=== PATIENT | female | born 1960 | race Caucasian/White ===

== ENCOUNTER 2023-04-23 10:27 | Day surgery (SDC) | payer OTHER ==
[2023-04-22 13:44] LABS: Absolute Lymphocytes (CBC) 1.6 K/uL (0.7-4.9); Lymphocytes % 38.1 % (15.3-44.8); MCV 91.8 fL (80-100); MPV 8.7 fL (7.6-11.3); RBC Red Blood Cell Count 4.03 M/uL (3.86-4.86)
--- NOTE | 2023-04-22 14:35 | EKG ---
Test Date: 2023-04-22 Test Time: 12:50:27 Sharepoint Manager: JEMIMA MEASUREMENT RESULTS: Intervals: Rate: 47 WV: 130 QRSD: 76 QT: 460 QTc: 407 [place]: P: -13 WV: 130 QRS: -16 T: -14 INTERPRETIVE STATEMENTS: Marked sinus bradycardia Inferior infarct, age undetermined Abnormal ECG Compared to ECG 03/22/2015 12:15:52 Myocardial infarct finding now present Sinus rhythm no longer present Electronically Signed On 04-22-23 14:35:32 CDT by Gaudencio Coffey
[2023-04-23] MEDS ORDERED: CEFAZOLIN SODIUM 1 GM/VIAL ONE (11:09)
[2023-04-23] MEDS ORDERED: Ringers Lactate 1,000 ML IV ONE (11:09)
[2023-04-23] MEDS ORDERED: ONDANSETRON 4 MG/2 ML VIAL ONE (11:52)
[2023-04-23] MEDS ORDERED: propofoL 200 MG/20 ML VIAL IV ONE ×2 (12:01→12:58)
[2023-04-23] MEDS ORDERED: LIDOCAINE 1% MPF 5 ML VIAL ONE (12:01)
[2023-04-23 14:15] VITALS: BP 135/66; TEMP 97.1; O2SAT 97
== END 2023-04-23 13:48 | disposition home or self-care (01) ==
LOC: OR 10:27
PROVIDERS: ATTEND Surgery
PROC: 0DB68ZX Excision of Stomach, Via Natural or Artificial Opening Endoscopic, Diagnostic (ICD-10-PCS; principal; 2023-04-23 12:30)
DX: R10.13 Epigastric pain (principal); K29.50 Unspecified chronic gastritis without bleeding; R14.0 Abdominal distension (gaseous); T85.598D Other mechanical complication of other gastrointestinal prosthetic devices, implants and grafts, subsequent encounter
CPT/HCPCS: 93005; 85025; 80048; 36415; 88312; 88305; 43239; J2704 ×2; J2001; J2405; J7120; J0690; C1769

== ENCOUNTER 2023-04-29 16:29 | Emergency (ER) | payer OTHER ==
[2023-04-29] MEDS ORDERED: PANTOPRAZOLE 40 MG INJ ONE (17:55)
[2023-04-29] MEDS ORDERED: ONDANSETRON 4 MG/2 ML VIAL ONE (17:55)
[2023-04-29 18:09] LABS: Absolute Lymphocytes (CBC) 1.9 K/uL (0.7-4.9); Hematocrit 35.4 % (36.0-45.0); Lymphocytes % 27.7 % (15.3-44.8); MCV 90.9 fL (80-100); MPV 8.7 fL (7.6-11.3)
[2023-04-29] MEDS ORDERED: NA CHLORIDE 0.9% 500 ML ONE (18:26)
[2023-04-29 18:31] LABS: Albumin 3.5 g/dL (3.4-5.0); Bilirubin Total 0.4 mg/dL (0.2-1.0); Protein, Total 7.6 g/dL (6.4-8.2)
--- NOTE | 2023-04-29 19:03 | RAD REPORT ---
EXAM DESCRIPTION: Martine Single View04/29/2023 6:52 pm CLINICAL HISTORY: abdominal pain COMPARISON: CHEST PA AND LAT 2 VIEW dated 02/28/2015; ABDOMEN 1 VIEW KUB dated 02/24/2015; ABDOMEN 1 VIE W KUB dated 01/23/2015; CHEST PA AND LAT 2 VIEW dated 10/27/2013 TECHNIQUE: Portable AP view of the chest. FINDINGS: The lungs are clear. Hyperlucency and hyperinflation suggestive of COPD. No pneumothorax or effusion. The cardiomediastinal contours are unremarkable. IMPRESSION: No acute cardiopulmonary process.
--- NOTE | 2023-04-29 19:15 | RAD REPORT ---
EXAM DESCRIPTION: CT - Abdomen Pelvis W Contrast - 04/29/2023 6:43 pm CLINICAL HISTORY: ABD PAIN COMPARISON: Abdomen Pelvis W Contrast dated 04/16/2023; CT ABD PELVIS W CONTRAST dated 01/30/2015; C T ABD PELVIS W CONTRAST dated 11/08/2013 TECHNIQUE: Thin cut axial CT imaging of the abdomen and pelvis was performed following intravenous a dministration of 100 mL Isovue 300. Multiplanar reformats were generated and reviewed. All CT scans are performed using dose optimization technique as appropriate and may include automated exposure control or mA/KV adjustment according to patient size. FINDINGS: No suspicious findings in the lung bases. The liver, spleen, and pancreas show no suspicious findings. Sub centimeter right liver lobe fluid de nsity lesion is stable, not well characterized given single phase of contrast and small size. Gallbla dder was surgically removed. No evidence of intra or extrahepatic biliary ductal dilation Symmetric renal function is seen with no hydronephrosis or suspicious renal mass. No dilated bowel loops or bowel wall thickening. Percutaneous gastrojejunostomy tube in satisfactory position. No free air, free fluid or inflammatory stranding. No hernia, mass or bulky lymphadenopathy . The urinary bladder is suboptimally distended limiting evaluation. No suspicious bony findings. IMPRESSION: No acute intra-abdominal process. No abnormalities with attention to the percutaneous gastrojejunostomy tube.
[2023-04-29] MEDS ORDERED: DICYCLOMINE HCL 20 MG/2 ML AMP IM ONE (19:57)
[2023-04-29 20:24] LABS: Specific Gravity 1.017 (1.005-1.030); Urine Bacteria None Seen /HPF (<20); Urine Bilirubin NEGATIVE (Negative); Urine Blood Trace (Negative); Urine Clarity Turbid (Clear); Urine Color Yellow (Yellow); Urine Glucose NEGATIVE (Negative); Urine Mucus 1+ /HPF (None Seen); Urine Protein TRACE (Negative); Urine Urobilinogen Normal (Normal)
--- NOTE | 2023-04-29 20:53 | RAD REPORT ---
EXAM DESCRIPTION: RAD - ENTEROSTOMY TUBE CHECK W/CONTR - 04/29/2023 8:35 pm CLINICAL HISTORY: leaking COMPARISON: Abdomen Pelvis W Contrast dated 04/29/2023 TECHNIQUE: Single AP views of the abdomen. FINDINGS: Retained contrast in the renal pelves limits evaluation Satisfactory positioning of the jejunostomy tube. Contrast injected the gastrojejunostomy acute along the lumen of the second part of duodenum to the jejunum, without evidence of extraluminal contrast. Nonobstructive bowel gas pattern. No air-fluid levels, free air, or pneumatosis. No suspicious calcif ications. No significant bony abnormality. IMPRESSION: Satisfactory positioning of the gastrojejunostomy tube, without evidence of extraluminal contrast.
--- NOTE | 2023-04-29 22:05 | EDPHYS ---
Physician Documentation [facility] Name: Tamara Sotelo Age: 62 yrs Sex: Female : 1960 Arrival Date: 04/29/2023 Time: 16:29 Bed 10 Private MD: ED Physician Sage Morrissey HPI: 04/29 17:05 This 62 yrs old Female presents to ER via Ambulatory with complaints of Post Surgical cp Pain, Abdominal Pain. 17:05 The patient presents with abdominal pain mid abdomen. cp 17:05 Onset: The symptoms/episode began/occurred since replacement of gastrojejunostomy tube cp by DR Diop months ago. Associated signs and symptoms: Pertinent positives: anorexia, Pertinent negatives: chest pain, constipation, nausea, active vomiting. Severity of pain: in the emergency department the pain is unchanged despite home interventions. Historical: - Allergies: 16:40 Codeine; hb 16:40 Demerol; hb 16:40 Dilaudid; hb 16:40 Morphine; hb 16:40 [place]; hb 16:40 Opiods; hb 16:40 Oxycodone; hb - PMHx: 16:40 Gastroparesis; Lupus erythematosus; FAP; hb - PSHx: 16:40 feeding tube; hysterectomy; ileostomy; hb - Immunization history:: Adult Immunizations up to date. - Social history:: Smoking status: Patient reports the use of cigarette tobacco products, smokes one-half pack cigarettes per day. ROS: 17:10 Constitutional: Negative for body aches, chills, fever, poor PO intake. cp 17:10 Respiratory: Negative for cough, shortness of breath, wheezing. cp 17:10 Abdomen/GI: Positive for abdominal pain. 17:10 Cardiovascular: Negative for chest pain, edema, palpitations. cp 17:10 Eyes: Negative for injury, pain, redness, and discharge. cp 17:10 Neuro: Negative for altered mental status, dizziness, headache, weakness. 17:10 All other systems are negative. Exam: 17:15 Constitutional: The patient appears in no acute distress, alert, awake, non-toxic, well cp developed, anorexic appearing 17:15 Head/Face: Normocephalic, atraumatic. cp 17:15 Eyes: Periorbital structures: appear normal, Conjunctiva: normal, no exudate, no injection, Sclera: no appreciated abnormality, Lids and lashes: appear normal, bilaterally. 17:15 ENT: External ear(s): are unremarkable, Nose: is normal, Mouth: Lips: moist, Oral mucosa: pink and intact, moist, Posterior pharynx: is normal, airway is patent, no erythema, no exudate. 17:15 Chest/axilla: Inspection: normal, Palpation: is normal, no crepitus, no tenderness. 17:15 Cardiovascular: Rate: normal, Rhythm: regular. 17:15 Respiratory: the patient does not display signs of respiratory distress, Respirations: normal, no use of accessory muscles, no retractions, labored breathing, is not present, Breath sounds: are clear throughout, no decreased breath sounds, no stridor, no wheezing. 17:15 Abdomen/GI: Inspection: gastrojejunostomy tube in place left mid abdomen with no drainage, minimal erythema around site, Bowel sounds: active, all quadrants, Palpation: soft, in all quadrants, moderate abdominal tenderness, in the left upper quadrant and left lower quadrant, rebound tenderness, is not appreciated, involuntary guarding, is not appreciated. 17:15 Skin: cellulitis, is not appreciated, no rash present. 17:15 Neuro: Orientation: to person, place \T\ time. Mentation: is normal, Motor: moves all fours, strength is normal, Sensation: is normal. Vital Signs: 16:38 BP 91 / 75; Pulse 93; Resp 16; Temp 98.6(O); Weight 37.19 kg; Height 5 ft. 4 in. ; Pain hb 10/10; 19:00 BP 121 / 80; Pulse 90; Resp 16; eh3 20:00 BP 127 / 81; Pulse 91; Resp 16; eh3 21:00 BP 111 / 75; Pulse 85; Resp 16; eh3 16:38 Body Mass Index 14.08 (37.19 kg, 162.56 cm) hb 16:38 Pain Scale: Adult hb MDM: 16:46 Patient medically screened. cp 18:00 Differential diagnosis: bowel obstruction, non-specific abd pain, Peritonitis, cp Pyelonephritis, Ureterolithiasis, urinary tract infection, sepsis, obstructed feeding tube. 21:16 Data reviewed: vital signs, nurses notes, lab test result(s), radiologic studies, CT cp scan, plain films. ED course: spoke with DR Yusuf to discuss today's results and he will f/u with patient in clinic next week. 04/29 16:57 Order name: CBC with Diff; Complete Time: 19:21 04/29 19:21 Interpretation: Normal except: HCT 35.4. 04/29 16:57 Order name: CMP; Complete Time: 19:21 04/29 19:21 Interpretation: Normal except: AST 13; GLOB 4.1; A/G 0.9. 04/29 16:57 Order name: Lipase; Complete Time: 19:21 04/29 16:57 Order name: Urinalysis w/ reflexes; Complete Time: 20:30 04/29 21:13 Interpretation: Normal except: [facility] Turbid; UBLD Trace; UPROT TRACE; URBC 5-10. 04/29 16:57 Order name: Lactate w/ 2H reflex if indic.; Complete Time: 19:21 04/29 19:22 Interpretation: Reviewed. 04/29 16:57 Order name: CT Abd/Pelvis - IV Contrast Only; Complete Time: 19:21 04/29 19:21 Interpretation: Report reviewed. 04/29 18:02 Order name: XRAY Chest (1 view); Complete Time: 19:21 04/29 19:32 Order name: PEG Tube Check w/contrast: place contrast in gastrostomy tube and not cp jejunostomy; Complete Time: 21:12 04/29 16:57 Order name: IV Saline Lock; Complete Time: 17:59 04/29 16:57 Order name: Labs collected and sent; Complete Time: 17:59 cp Administered Medications: 17:59 Drug: Ondansetron IVP 4 mg Route: IVP; Site: right antecubital; kc6 20:09 Follow up: Response: No adverse reaction eh3 17:59 Drug: Pantoprazole IVP 40 mg Route: IVP; Site: right antecubital; kc6 20:09 Follow up: Response: No adverse reaction eh3 18:29 Drug: NS 0.9% IV 500 ml Route: IV; Rate: bolus; Site: right antecubital; kc6 20:09 Follow up: IV Status: Completed infusion; IV Intake: 500ml eh3 20:00 Drug: Dicyclomine IM 20 mg Route: IM; Site: right deltoid; [facility] 21:00 Follow up: Response: No adverse reaction [facility] 22:08 Drug: Ketorolac IVP 15 mg Route: IVP; Site: right antecubital; 3 22:09 Follow up: Response: Medication administered at discharge. [facility] Disposition: 04/30 09:04 Co-signature as Attending Physician, Sage Morrissey DO Jojo was immediately available on-site ms3 in the Emergency Department for consultation in the care of the patient. Disposition Summary: 04/29/23 22:04 Discharge Ordered Location: Home cp Problem: an ongoing problem cp Symptoms: have improved cp Condition: Stable cp Diagnosis - Abdominal pain, unspecified cp - Encounter for attention to gastrostomy cp Followup: cp - With: Rolf Yusuf MD - When: 5 - 6 days - Reason: Recheck today's complaints Discharge Instructions: - Discharge Summary Sheet cp - Abdominal Pain, Adult cp - Gastrostomy Tube Home Guide, Adult cp Forms: - Medication Reconciliation Form cp - Thank You Letter cp - Antibiotic Education cp - Prescription Opioid Use cp Prescriptions: - Zofran 4 mg Oral Tablet - take 1 tablet by ORAL route every 12 hours As needed; 20 tablet; Refills: 0, cp Product Selection Permitted - dicyclomine 20 mg Oral Tablet - take 1 tablet by ORAL route 4 times per day; 30 tablet; Refills: 0, Product cp Selection Permitted Signatures: Dispatcher [employer] EDTyrone Tarango PA PA cp Baxter, Heather, RN RN hb Sims, Marcus, DO DO ms3 Dawna Pink RN RN 3 Debra Valdes RN RN kc6
--- NOTE | 2023-04-29 22:05 | ER ---
Nurse's Notes [facility] Name: Tamara Sotelo Age: 62 yrs Sex: Female : 1960 Arrival Date: 04/29/2023 Time: 16:29 Bed 10 Private MD: Diagnosis: Abdominal pain, unspecified;Encounter for attention to gastrostomy Presentation: 04/29 16:38 Chief complaint: Had J tube repositioned last week by Dr. Yusuf, reports worsening hb abdominal pain and fever x 2 days. TMAX 100.7. Coronavirus screen: At this time, the client does not indicate any symptoms associated with coronavirus-19. Ebola Screen: No symptoms or risks identified at this time. Initial Sepsis Screen: Does the patient meet any 2 criteria? No. Patient's initial sepsis screen is negative. Does the patient have a suspected source of infection? No. Patient's initial sepsis screen is negative. Risk Assessment: Do you want to hurt yourself or someone else? Patient reports no desire to harm self or others. Onset of symptoms was April 25, 2023. 16:38 Method Of Arrival: Ambulatory hb 16:38 Acuity: VAL 3 hb Historical: - Allergies: 16:40 Codeine; hb 16:40 Demerol; hb 16:40 Dilaudid; hb 16:40 Morphine; hb 16:40 [place]; hb 16:40 Opiods; hb 16:40 Oxycodone; hb - PMHx: 16:40 Gastroparesis; Lupus erythematosus; FAP; hb - PSHx: 16:40 feeding tube; hysterectomy; ileostomy; hb - Immunization history:: Adult Immunizations up to date. - Social history:: Smoking status: Patient reports the use of cigarette tobacco products, smokes one-half pack cigarettes per day. Screenin:02 [facility] ED Fall Risk Assessment (Adult) History of falling in the last 3 months, kc6 including since admission No falls in past 3 months (0 pts) Confusion or Disorientation No (0 pts) Intoxicated or Sedated No (0 pts) Impaired Gait No (0 pts) Mobility Assist Device Used No (0 pt) Altered Elimination No (0 pt) Score/Fall Risk Level 0 - 2 = Low Risk Oriented to surroundings, Maintained a safe environment, Educated pt \T\ family on fall prevention, incl call for assistance when getting out of bed, Assessed \T\ reinforced patient's understanding of fall precautions, Hourly rounding (assess needs \T\ fall precautionary measures) done. Abuse screen: Denies threats or abuse. Denies injuries from another. Nutritional screening: No deficits noted. Tuberculosis screening: No symptoms or risk factors identified. Assessment: 18:01 General: Appears in no apparent distress. uncomfortable, Behavior is calm, cooperative, kc6 appropriate for age. Pain: Complains of pain in abdomen. Neuro: Level of Consciousness is awake, alert, obeys commands, Oriented to person, place, time, situation, Appropriate for age. Cardiovascular: Capillary refill < 3 seconds. Respiratory: Airway is patent Trachea midline Respiratory effort is even, unlabored, Respiratory pattern is regular, symmetrical. GI: Abdomen is flat, non-distended, Bowel sounds present X 4 quads. Abd is soft X 4 quads. : No signs and/or symptoms were reported regarding the genitourinary system. EENT: No signs and/or symptoms were reported regarding the EENT system. Derm: No signs and/or symptoms reported regarding the dermatologic system. Skin is intact, Skin is pink, warm \T\ dry. Musculoskeletal: No signs and/or symptoms reported regarding the musculoskeletal system. Circulation, motion, and sensation intact. Capillary refill < 3 seconds, Range of motion: intact in all extremities. 18:58 Reassessment: Patient appears in no apparent distress at this time. No changes from kc6 previously documented assessment. Patient and/or family updated on plan of care and expected duration. Pain level reassessed. Patient is alert, oriented x 3, equal unlabored respirations, skin warm/dry/pink. 20:00 Reassessment: Patient appears in no apparent distress at this time. Patient and/or eh3 family updated on plan of care and expected duration. Pain level reassessed. Patient is alert, oriented x 3, equal unlabored respirations, skin warm/dry/pink. 21:00 Reassessment: Patient appears in no apparent distress at this time. Patient and/or eh3 family updated on plan of care and expected duration. Pain level reassessed. Patient is alert, oriented x 3, equal unlabored respirations, skin warm/dry/pink. Vital Signs: 16:38 BP 91 / 75; Pulse 93; Resp 16; Temp 98.6(O); Weight 37.19 kg; Height 5 ft. 4 in. ; Pain hb 10/10; 19:00 BP 121 / 80; Pulse 90; Resp 16; eh3 20:00 BP 127 / 81; Pulse 91; Resp 16; eh3 21:00 BP 111 / 75; Pulse 85; Resp 16; eh3 16:38 Body Mass Index 14.08 (37.19 kg, 162.56 cm) hb 16:38 Pain Scale: Adult hb ED Course: 16:30 Patient arrived in ED. ts1 16:39 Tyrone Frausto PA is PHCP. cp 16:39 Sage Morrissey DO is Attending Physician. cp 16:40 Triage completed. hb 16:40 Arm band placed on. hb 17:01 Radiology exam delayed due to lab results not completed at this time. (BUN/Creatinine) [id number] IV insertion attempt and/or patient not having appropriate IV at this time. 17:46 Debra Valdes RN is Primary Nurse. kc6 17:59 Inserted saline lock: 20 gauge in right antecubital area, using aseptic technique. kc6 Blood collected. 18:02 Patient has correct armband on for positive identification. Bed in low position. Call kc6 light in reach. Side rails up X 1. Adult w/ patient. 18:45 CT Abd/Pelvis - IV Contrast Only In Process Unspecified. EDMS 18:53 XRAY Chest (1 view) In Process Unspecified. EDMS 19:00 Report received from DORA Richardson. eh3 20:36 PEG Tube Check w/contrast: place contrast in gastrostomy tube and not jejunostomy In EDMS Process Unspecified. 22:02 Rolf Yusuf MD is Referral Physician. cp 22:09 No provider procedures requiring assistance completed. IV discontinued, intact, eh3 bleeding controlled, No redness/swelling at site. Pressure dressing applied. Administered Medications: 17:59 Drug: Ondansetron IVP 4 mg Route: IVP; Site: right antecubital; kc6 20:09 Follow up: Response: No adverse reaction eh3 17:59 Drug: Pantoprazole IVP 40 mg Route: IVP; Site: right antecubital; kc6 20:09 Follow up: Response: No adverse reaction eh3 18:29 Drug: NS 0.9% IV 500 ml Route: IV; Rate: bolus; Site: right antecubital; kc6 20:09 Follow up: IV Status: Completed infusion; IV Intake: 500ml eh3 20:00 Drug: Dicyclomine IM 20 mg Route: IM; Site: right deltoid; eh3 21:00 Follow up: Response: No adverse reaction eh3 22:08 Drug: Ketorolac IVP 15 mg Route: IVP; Site: right antecubital; eh3 22:09 Follow up: Response: Medication administered at discharge. 3 Medication: 22:09 VIS not applicable for this client. eh3 Intake: 20:09 IV: 500ml; Total: 500ml. 3 Outcome: 22:04 Discharge ordered by MD. cp 22:09 Discharged to home via wheelchair, with family. 3 22:09 Condition: stable 22:09 Discharge instructions given to patient, Instructed on discharge instructions, follow up and referral plans. Demonstrated understanding of instructions, follow-up care, medications, Prescriptions given X 2. 22:13 Patient left the ED. 3 Signatures: Dispatcher [employer] EDMS Tyrone Frausto PA PA cp Baxter, Heather, RN RN Dawna Pink RN RN 3 Debra Valdes RN RN 6 Marzena AlexanderChristine Cantor PAS PAS 1
[2023-04-29] MEDS ORDERED: KETOROLAC 30 MG/ML INJ ONE (22:10)
[2023-04-29 22:39] VITALS: TEMP 98.6
[2023-04-29 22:51] VITALS: BP 111/75
== END 2023-04-29 22:13 | disposition home or self-care (01) ==
LOC: ER 16:29
DX: R10.9 Unspecified abdominal pain (principal); Z43.1 Encounter for attention to gastrostomy; R50.9 Fever, unspecified; Z88.5 Allergy status to narcotic agent; Z88.8 Allergy status to other drugs, medicaments and biological substances; K31.84 Gastroparesis; L93.0 Discoid lupus erythematosus
CPT/HCPCS: 96361; 85025; 81001; 36415; 83605; 83690; 80053; 74177; 71045; 49465; 96375; 96372; 96374; 99284; Q9967; J0500; C9113; J2405; J7040

== ENCOUNTER 2023-05-04 13:02 | Inpatient (IN) | payer OTHER ==
[2023-05-04] MEDS ORDERED: MORPHINE 2 MG/ML SYR IV PRN (17:08)
[2023-05-04] MEDS ORDERED: ONDANSETRON 4 MG/2 ML VIAL IV PRN (17:08)
[2023-05-04] MEDS ORDERED: TWOCAL HN 1,000 ML BOT RTH SCH (18:00)
[2023-05-04] MEDS ORDERED: NA CHLORIDE 0.9% 1,000 ML IV SCH (18:00)
[2023-05-04 18:22] LABS: Absolute Lymphocytes (CBC) 1.8 K/uL (0.7-4.9); Hematocrit 34.6 % (36.0-45.0); Lymphocytes % 34.2 % (15.3-44.8); MCV 90.6 fL (80-100); MPV 8.5 fL (7.6-11.3); RBC Red Blood Cell Count 3.82 M/uL (3.86-4.86)
[2023-05-04 18:28] LABS: Protime INR 1.11
[2023-05-04 18:38] LABS: Albumin 3.2 g/dL (3.4-5.0); Bilirubin Total 0.2 mg/dL (0.2-1.0); Potassium 3.7 mEq/L (3.5-5.1); Protein, Total 7.1 g/dL (6.4-8.2)
[2023-05-04] MEDS: NA CHLORIDE 0.9% 1,000 ML IV SCH (18:42)
[2023-05-04] MEDS: LIPIDS 20% IV SCH ×3 (18:51)
[2023-05-04] MEDS: AMINO ACIDS IV SCH ×3 (18:51)
[2023-05-04] MEDS: DEXTROSE 5% IV SCH ×3 (18:51)
[2023-05-04] MEDS: MULTIVITAMINS IV SCH ×3 (18:51)
[2023-05-04] MEDS: Mupirocin NASAL 2 APPL/1 GM TUBE NAS SCH (19:49)
--- NOTE | 2023-05-05 05:00 | P.HP ---
Certification for Inpatient Patient admitted to: Inpatient With expected LOS: >2 Midnights Patient will require the following post-hospital care: None Practitioner: I am a practitioner with admitting privileges, knowledge of patient current condition, hospital course, and medical plan of care. Services: Services provided to patient in accordance with Admission requirements found in Title 42 Section 412.3 of the Code of Federal Regulations Patient History Date of Service: 05/04/23 History of Present Illness: Patient is a 62-year-old female who I was asked to admit to the hospital for severe malnutrition. Patient has apparently been having difficulty with her feeding tube and has lost quite a bit of weight. However, her feeding tube is appropriately placed. She has a history of systemic lupus erythematous and familial adenomatous polyposis. Patient also has a history of gastroparesis and that was the main reason she had the feeding tube placed. She has been having intractable nausea and vomiting as well as severe anorexia. Patient had a recent CT scan of the abdomen and pelvis which was unremarkable. Patient's albumin level is stable as well. Patient will be admitted to the hospital for further evaluation. Allergies codeine Allergy (Verified 04/23/23 11:36) rash, nausea, vomiting hydromorphone [From Dilaudid] Allergy (Verified 04/23/23 11:36) Rash, nausea, vomiting meperidine HCl [From Demerol] Allergy (Verified 04/23/23 11:36) Nausea/Vomiting morphine Allergy (Verified 04/23/23 11:36) quits breathing tramadol Allergy (Verified 04/23/23 11:36) hallucinations Hydrocodone-Acetaminophen Allergy (Uncoded 04/23/23 11:36) rash, nausea, vomiting Home Medications: Dicyclomine [Bentyl*] 20 mg PO QID 05/04/23 Ondansetron [Zofran (Odt)*] 4 mg PO Q12H PRN 05/04/23 - Past Medical/Surgical History Has patient received pneumonia vaccine in the past: No Diabetic: No -: Lupus -: FAP -: Gastroparesis -: Peripheral neuropathy -: Osteopenia/osteoporosis -: Fibromyalgia -: kidney stones -: cysts on liver and kidneys -: partial complex seizure disorder -: Ovarian cysts removal -: Hysterectomy -: appendectomy -: bowel resection -: J pouch in 1999, failed in 2019 -: Ileostomy -: Feeding tube -: Metal plate in right hand and neck - Family History Father Medical History: Heart disease Brother Medical History: Heart disease Mother Medical History: Cancer Notes: LUNG AND BLADDER CANCER - Social History Smoking Status: Current every day smoker Alcohol use: No CD- Drugs: No Caffeine use: No Place of Residence: Home Review of Systems 10-point ROS is otherwise unremarkable Physical Examination - Vital Signs Temperature: 97.2 F Blood Pressure: 97/58 Pulse: 58 Respirations: 17 Pulse Ox (%): 96 - Physical Exam General: Alert, In no apparent distress, Oriented x3, Cachectic, Other (emaciated) HEENT: Atraumatic, PERRLA, Mucous membr. moist/pink, EOMI, Sclerae nonicteric Neck: Supple, 2+ carotid pulse no bruit, No LAD, Without JVD or thyroid abnormality Respiratory: Clear to auscultation bilaterally, Normal air movement Cardiovascular: Regular rate/rhythm, Normal S1 S2, No murmurs Gastrointestinal: Normal bowel sounds, Soft and benign, Non-distended, No tenderness, Guarding (scaphoid abdomen) Musculoskeletal: No clubbing, No swelling, No tenderness Integumentary: No rashes Neurological: Sensation intact, Cranial nerves 3-12 intact, Normal affect, Abnormal strength Lymphatics: No axilla or inguinal lymphadenopathy - Studies Laboratory Data (last 24 hrs) 05/04/23 18:01: Sodium 137, Potassium 3.7, BUN 10, Creatinine 0.65, Glucose 118 H, Total Bilirubin 0.2, AST 10 L, ALT 12 L, Alkaline Phosphatase 78 05/04/23 18:01: PT 12.2, INR 1.11, APTT 34.9 05/04/23 18:01: WBC 5.40, Hgb 11.6 L, Hct 34.6 L, Plt Count 244 Assessment & Plan - Problems (Diagnosis) (1) SLE (systemic lupus erythematosus) Current Visit: Yes Status: Acute (2) FAP (familial adenomatous polyposis) Current Visit: Yes Status: Acute (3) Severe malnutrition Current Visit: Yes Status: Acute (4) Gastroparesis Current Visit: Yes Status: Acute - Plan Plan: 1. IV nutrition 2. Speech therapy consultation 3. Dietary consultation 4. Thyroid studies and will also check cortisol level and inflammatory markers. 5. Education re: use of G/J tube 6. GI DVT prophylaxis Discharge Plan: Home Plan to discharge in: Greater than 2 days - Advance Directives Does patient have a Living Will: No Does patient have a Durable POA for Healthcare: No - Code Status/Comfort Care Code Status Assessed: Yes Code Status: Full Code Critical Care: No Time Spent Managing PTS Care (In Minutes): 45
[2023-05-05 06:10] LABS: Absolute Lymphocytes (CBC) 1.6 K/uL (0.7-4.9); Hematocrit 35.1 % (36.0-45.0); Lymphocytes % 37.6 % (15.3-44.8); MCV 91.1 fL (80-100); MPV 8.5 fL (7.6-11.3); RBC Red Blood Cell Count 3.85 M/uL (3.86-4.86)
[2023-05-05 06:15] LABS: Protime INR 1.09
[2023-05-05 06:32] LABS: Bilirubin Total 0.3 mg/dL (0.2-1.0); Magnesium 2.4 mg/dL (1.6-2.4); Phosphorus 3.7 mg/dL (2.5-4.9); Potassium 4.1 mEq/L (3.5-5.1); Protein, Total 6.9 g/dL (6.4-8.2)
[2023-05-05] MEDS ORDERED: PNEUMOCOCCAL VACCINE 0.5 ML IMVAC ONE (08:00)
[2023-05-05] MEDS: Mupirocin NASAL 2 APPL/1 GM TUBE NAS SCH ×2 (08:13→21:10)
[2023-05-05] MEDS ORDERED: INSULIN -REGULAR HUMAN 100 UNIT in NA CHLORIDE 0.9% 100 ML IV SCH (16:00)
[2023-05-05] MEDS: AMINO ACIDS 4.25 %/DEXTROSE 5% 2,000 ML IV SCH (16:27)
[2023-05-05] MEDS ORDERED: JEVITY 1.5 CAL LIQUID 1,000 ML BOT RTH SCH ×2 (18:00)
[2023-05-06] MEDS: NA CHLORIDE 0.9% 1,000 ML IV SCH (06:42)
[2023-05-06 07:28] LABS: Hematocrit 40.2 % (36.0-45.0); MCV 91.4 fL (80-100); MPV 8.4 fL (7.6-11.3); RBC Red Blood Cell Count 4.39 M/uL (3.86-4.86)
[2023-05-06 07:46] LABS: Magnesium 2.1 mg/dL (1.6-2.4); Phosphorus 3.7 mg/dL (2.5-4.9)
[2023-05-06 08:09] LABS: C-Reactive Protein 25.3 mg/L (<3.00)
[2023-05-06 08:13] LABS: Thyroid Stimulating Hormone 3.96 uIU/mL (0.358-3.740)
[2023-05-06] MEDS: Mupirocin NASAL 2 APPL/1 GM TUBE NAS SCH ×2 (08:15→21:00)
--- NOTE | 2023-05-06 10:13 | P.PN ---
Date of Service: 05/05/23 Subjective Patient is doing well with no new complaints; education re: G/J tube Physical Examination - Vital Signs reviewed - Physical Exam General: Alert, In no apparent distress, Oriented x3, Cachectic, Other (emaciated) HEENT: Atraumatic, PERRLA, Mucous membr. moist/pink, EOMI, Sclerae nonicteric; temporal wasting Respiratory: Clear to auscultation bilaterally, Normal air movement Cardiovascular: Regular rate/rhythm, Normal S1 S2, No murmurs Gastrointestinal: Normal bowel sounds, Soft and benign, Non-distended, No tenderness, Guarding (scaphoid abdomen); Ileostomy; G/J tube Musculoskeletal: No clubbing, No swelling, No tenderness Neurological: Sensation intact, Cranial nerves 3-12 intact, Normal affect, Abnormal strength Assessment & Plan - Problems (Diagnosis) (1) SLE (systemic lupus erythematosus) Current Visit: Yes Status: Acute (2) FAP (familial adenomatous polyposis) Current Visit: Yes Status: Acute (3) Severe malnutrition Current Visit: Yes Status: Acute (4) Gastroparesis Current Visit: Yes Status: Acute - Plan Continue with POC as mentioned below: 1. IV nutrition 2. Speech therapy consultation appreciated 3. Dietary consultation appreciated 4. Thyroid studies and will also check cortisol level and inflammatory markers. 5. Education re: use of G/J tube 6. GI DVT prophylaxis Discharge Plan: Home Plan to discharge in: Greater than 2 days - Advance Directives Does patient have a Living Will: No Does patient have a Durable POA for Healthcare: No - Code Status/Comfort Care Code Status Assessed: Yes Code Status: Full Code Critical Care: No Time Spent Managing PTS Care (In Minutes): 45
[2023-05-06] MEDS: ACETAMINOPHEN 500 MG TAB PO PRN (14:13)
--- NOTE | 2023-05-06 16:19 | RAD REPORT ---
EXAM DESCRIPTION: RAD - Abdomen 1 View (KUB) - 05/06/2023 3:01 pm CLINICAL HISTORY: abd pain COMPARISON: ABDOMEN 1 VIEW KUB dated 02/24/2015; ABDOMEN 1 VIEW KUB dated 01/23/2015; ENTEROSTOMY TUBE C HECK W/CONTR dated 04/29/2023; Abdomen Pelvis W Contrast dated 04/29/2023 TECHNIQUE: Single AP view of the abdomen. FINDINGS: Nonobstructive bowel gas pattern. No air-fluid levels, free air, or pneumatosis. Stable po sition of the gastrojejunostomy tube. No suspicious calcifications. No significant bony abnormality. IMPRESSION: No abnormalities on abdominal radiographs.
[2023-05-07] MEDS: ACETAMINOPHEN 500 MG TAB PO PRN (00:36)
[2023-05-07] MEDS: AMINO ACIDS IV SCH ×3 (03:10)
[2023-05-07] MEDS: LIPIDS 20% IV SCH ×3 (03:10)
[2023-05-07] MEDS: DEXTROSE 5% IV SCH ×3 (03:10)
[2023-05-07] MEDS: MULTIVITAMINS IV SCH ×3 (03:10)
[2023-05-07 06:39] LABS: Absolute Lymphocytes (CBC) 1.7 K/uL (0.7-4.9); Hematocrit 36.1 % (36.0-45.0); Lymphocytes % 31.7 % (15.3-44.8); MCV 90.4 fL (80-100); MPV 8.2 fL (7.6-11.3)
[2023-05-07 06:48] LABS: C-Reactive Protein 12.8 mg/L (<3.00); Magnesium 2.1 mg/dL (1.6-2.4); Phosphorus 3.7 mg/dL (2.5-4.9); Potassium 3.9 mEq/L (3.5-5.1)
[2023-05-07] MEDS ORDERED: HYDROCORTISONE SUC 100 MG INJ IV ONE (07:41)
[2023-05-07 07:59] LABS: Albumin 3.1 g/dL (3.4-5.0); Prealbumin 17.9 mg/dL (20-40)
[2023-05-07] MEDS: Mupirocin NASAL 2 APPL/1 GM TUBE NAS SCH (08:38)
--- NOTE | 2023-05-07 10:26 | P.PN ---
Date of Service: 05/06/23 Subjective Patient is doing well after the TPN. She states she feels a lot better. I spoke with nursing and they were advised to go ahead and start some tube feedings. We will see how she tolerates this as well. Physical Examination - Vital Signs reviewed - Physical Exam General: Alert, In no apparent distress, Oriented x3, Cachectic, Other (emaciated) HEENT: Cachectic appearing and temporal wasting Respiratory: Clear to auscultation bilaterally, Normal air movement Cardiovascular: Regular rate/rhythm, Normal S1 S2, No murmurs Gastrointestinal: Normal bowel sounds, Soft and benign, Non-distended, No tenderness, Guarding (scaphoid abdomen); Ileostomy; G/J tube Musculoskeletal: No clubbing, No swelling, No tenderness Neurological: Sensation intact, Cranial nerves 3-12 intact, Normal affect, Abnormal strength Assessment & Plan - Problems (Diagnosis) (1) SLE (systemic lupus erythematosus) Current Visit: Yes Status: Acute (2) FAP (familial adenomatous polyposis) Current Visit: Yes Status: Acute (3) Severe malnutrition Current Visit: Yes Status: Acute (4) Gastroparesis Current Visit: Yes Status: Acute - Plan Continue with POC as mentioned below: 1. Continue with IV nutrition 2. Speech therapy consultation appreciated 3. Dietary consultation appreciated 4. Thyroid studies and will also check cortisol level and inflammatory markers. 5. Education re: use of G/J tube we will try to feed her with the J-tube and see if patient tolerates it. 6. GI/DVT prophylaxis Discharge Plan: Home Plan to discharge in: Greater than 2 days - Advance Directives Does patient have a Living Will: No Does patient have a Durable POA for Healthcare: No - Code Status/Comfort Care Code Status Assessed: Yes Code Status: Full Code Critical Care: No Time Spent Managing PTS Care (In Minutes): 45
--- NOTE | 2023-05-07 10:28 | P.PN ---
Date of Service: 05/07/23 Subjective Patient's tube feeds starting and patient did not tolerate the tube feeds as she started having some pain. G-tube residuals were checked and these were very minimal. Patient's tube feeds are not backing up into her stomach but she just is not tolerating them for what ever reason. We will need to further investigate if there is any anatomic issues. Will discuss with general surgery. Tolerating IV nutrition well. Anticipate discharge over the next 24 to 48 hours. Physical Examination - Vital Signs reviewed - Physical Exam General: Alert, In no apparent distress, Oriented x3, Cachectic, Other (emaciated) HEENT: Cachectic appearing and temporal wasting Respiratory: Clear to auscultation bilaterally, Normal air movement Cardiovascular: Regular rate/rhythm, Normal S1 S2, No murmurs Gastrointestinal: Normal bowel sounds, Soft and benign, Non-distended, No tenderness, Guarding (scaphoid abdomen); Ileostomy; G/J tube Musculoskeletal: No clubbing, No swelling, No tenderness Neurological: Sensation intact, Cranial nerves 3-12 intact, Normal affect, Abnormal strength Assessment & Plan - Problems (Diagnosis) (1) SLE (systemic lupus erythematosus) Current Visit: Yes Status: Acute (2) FAP (familial adenomatous polyposis) Current Visit: Yes Status: Acute (3) Severe malnutrition Current Visit: Yes Status: Acute (4) Gastroparesis Current Visit: Yes Status: Acute - Plan Continue with POC as mentioned below: 1. Continue with IV nutrition 2. Speech therapy consultation appreciated 3. Dietary consultation appreciated 4. Thyroid studies and will also check cortisol level and inflammatory markers. 5. Education re: use of G/J tube we will try to feed her with the J-tube and see if patient tolerates it. 6. GI/DVT prophylaxis Discharge Plan: Home Plan to discharge in: Greater than 2 days - Advance Directives Does patient have a Living Will: No Does patient have a Durable POA for Healthcare: No - Code Status/Comfort Care Code Status Assessed: Yes Code Status: Full Code Critical Care: No Time Spent Managing PTS Care (In Minutes): 45
--- NOTE | 2023-05-07 13:18 | RAD REPORT ---
EXAM DESCRIPTION: CT - Abdomen Pelvis Wo Contrast - 05/07/2023 1:04 pm CLINICAL HISTORY: Abdominal pain. pain when J tube Feeding infusing. COMPARISON: Abdomen Pelvis W Contrast dated 04/29/2023; Abdomen Pelvis W Contrast dated 04/16/2023; CT ABD PELVIS W CONTRAST dated 01/30/2015 TECHNIQUE: CT imaging of the abdomen and pelvis was performed without contrast. Solid organ and vasc ular assessment is limited due to lack of IV contrast. All CT scans are performed using dose optimization technique as appropriate and may include automated exposure control or mA/KV adjustment according to patient size. FINDINGS: The inferior lung modi are emphysematous but clear. Limited noncontrast assessment of the liver, spleen, pancreas, adrenal glands kidneys show no acute p rocess. Enteric tube is present which enters the stomach in the left aspect of the abdomen. The bulb is withi n the stomach lumen. The tubing itself extends to the level of the proximal jejunum. No unusual or un expected finding. There is a right lower quadrant ostomy site noted. No bowel obstruction. No free fl uid, free air or abscess. Postsurgical changes of near-total colectomy. The osseous structures are within normal limits. IMPRESSION: No acute intra-abdominal or pelvic findings. Gastrojejunostomy tube shows no concerning finding. A limited non-contrast examination was performed as detailed.
[2023-05-07] MEDS: NA CHLORIDE 0.9% 1,000 ML IV SCH (14:10)
[2023-05-07] MEDS: AMINO ACIDS 4.25 %/DEXTROSE 5% 2,000 ML IV SCH (16:55)
--- NOTE | 2023-05-07 19:23 | RAD REPORT ---
EXAM DESCRIPTION: RAD - Chest Single View - 05/06/2023 11:56 pm CLINICAL HISTORY: The patient is 62 years old and is Female; PICC LINE TECHNIQUE: Frontal view of the chest. COMPARISON: No relevant prior studies available. FINDINGS: Lungs: Hyperexpansion bilaterally. No consolidation. Pleural space: Unremarkable. No pneumothorax. Heart: Unremarkable. Mediastinum: Unremarkable. Bones/joints: Unremarkable. Tubes, lines and devices: Right PICC with tip in the SVC. IMPRESSION: No acute findings in the chest. Electronically signed by: Mac Pressley MD 05/07/2023 12:11 AM CDT Due to temporary technical issues with the PACS/Fluency reporting system, reports are being signed by the in house radiologists without review as a courtesy to insure prompt reporting. The interpreting radiologist is fully responsible for the content of the report.
[2023-05-08] MEDS: Mupirocin NASAL 2 APPL/1 GM TUBE NAS SCH ×3 (01:07→20:10)
--- NOTE | 2023-05-08 07:32 | RAD REPORT ---
EXAM DESCRIPTION: RAD - Abdomen 1 View (KUB) - 05/08/2023 5:00 am CLINICAL HISTORY: follow contrast - small bowel COMPARISON: Abdomen 1 View (KUB) dated 05/06/2023; ABDOMEN 1 VIEW KUB dated 02/24/2015; ABDOMEN 1 VIEW KUB dated 01/23/2015; Abdomen Pelvis Wo Contrast dated 05/07/2023; Chest Single View dated 05/06/2023; Abdomen Pelvis W Contrast dated 04/29/2023 FINDINGS: Nonobstructive bowel gas pattern. No acute osseous abnormality.Visualized lungs are unrema rkable.No abnormal calcifications. Gastrojejunostomy. Surgical clips in the right upper quadrant. IMPRESSION: Enteric contrast not well appreciated. It may be so diffusely diluted that is not readil y apparent or has passed. The bowel gas pattern is nonobstructive
[2023-05-08 07:51] LABS: Absolute Lymphocytes (CBC) 2.3 K/uL (0.7-4.9); Hematocrit 36.2 % (36.0-45.0); Lymphocytes % 34.9 % (15.3-44.8); MCV 90.3 fL (80-100); MPV 8.2 fL (7.6-11.3); RBC Red Blood Cell Count 4.01 M/uL (3.86-4.86)
[2023-05-08 08:04] LABS: Albumin 3.2 g/dL (3.4-5.0); Magnesium 2.2 mg/dL (1.6-2.4); Phosphorus 3.1 mg/dL (2.5-4.9); Potassium 3.4 mEq/L (3.5-5.1); Prealbumin 19.4 mg/dL (20-40)
[2023-05-08] MEDS: DEXTROSE 5% IV SCH ×3 (17:04)
[2023-05-08] MEDS: LIPIDS 20% IV SCH ×3 (17:04)
[2023-05-08] MEDS: AMINO ACIDS IV SCH ×3 (17:04)
[2023-05-08] MEDS: MULTIVITAMINS IV SCH ×3 (17:04)
[2023-05-08] MEDS: NA CHLORIDE 0.9% 1,000 ML IV SCH (17:17)
[2023-05-09 05:49] LABS: Absolute Lymphocytes (CBC) 1.5 K/uL (0.7-4.9); Hematocrit 34.2 % (36.0-45.0); Lymphocytes % 28.9 % (15.3-44.8); MCV 90.7 fL (80-100); RBC Red Blood Cell Count 3.77 M/uL (3.86-4.86)
[2023-05-09 06:01] LABS: Magnesium 2.1 mg/dL (1.6-2.4); Phosphorus 3.5 mg/dL (2.5-4.9); Potassium 3.7 mEq/L (3.5-5.1)
[2023-05-09] MEDS: Mupirocin NASAL 2 APPL/1 GM TUBE NAS SCH (08:12)
[2023-05-09] MEDS: AMINO ACIDS 4.25 %/DEXTROSE 5% 2,000 ML IV SCH (18:21)
[2023-05-09] MEDS: NA CHLORIDE 0.9% 1,000 ML IV SCH (20:40)
[2023-05-09 22:24] VITALS: O2SAT 98
[2023-05-10 05:25] LABS: Absolute Lymphocytes (CBC) 1.9 K/uL (0.7-4.9); Hematocrit 32.4 % (36.0-45.0); Lymphocytes % 33.3 % (15.3-44.8); MCV 90.1 fL (80-100); MPV 8.2 fL (7.6-11.3)
[2023-05-10 05:48] LABS: Phosphorus 3.2 mg/dL (2.5-4.9); Potassium 3.7 mEq/L (3.5-5.1)
--- NOTE | 2023-05-10 07:12 | P.PN ---
Date of Service: 05/09/23 Subjective Patient was able to eat some of her meals. She overall is feeling much better. I do not think we can do TPN long-term because of the risk associated as an outpatient. She is eating about 50% of her meals. If she can supplement this with shakes 2-3 times a day she should be able to meet her caloric requirements at this time. She states that she will find out Thursday if they can do the procedure to evaluate her feeding tube. I anticipate she will be able to go home Thursday with outpatient follow-up for further evaluation of her G and J-tube going forward. Physical Examination - Vital Signs reviewed - Physical Exam General: Alert, In no apparent distress, Oriented x3, Cachectic, Other (emaciated) HEENT: Cachectic appearing and temporal wasting Respiratory: Clear to auscultation bilaterally, Normal air movement Cardiovascular: Regular rate/rhythm, Normal S1 S2, No murmurs Gastrointestinal: Normal bowel sounds, Soft and benign, Non-distended, No tenderness, Guarding (scaphoid abdomen); Ileostomy; G/J tube Musculoskeletal: No clubbing, No swelling, No tenderness Neurological: Sensation intact, Cranial nerves 3-12 intact, Normal affect, Abnormal strength Assessment & Plan - Problems (Diagnosis) (1) SLE (systemic lupus erythematosus) Current Visit: Yes Status: Acute (2) FAP (familial adenomatous polyposis) Current Visit: Yes Status: Acute (3) Severe malnutrition Current Visit: Yes Status: Acute (4) Gastroparesis Current Visit: Yes Status: Acute - Plan Continue with POC as mentioned below: 1. Continue with IV nutrition 2. Speech therapy consultation appreciated 3. Dietary consultation appreciated 4. Thyroid studies and will also check cortisol level and inflammatory markers. 5. Education re: use of G/J tube we will try to feed her with the J-tube and see if patient tolerates it. 6. GI/DVT prophylaxis Discharge Plan: Home Plan to discharge in: Greater than 2 days - Advance Directives Does patient have a Living Will: No Does patient have a Durable POA for Healthcare: No - Code Status/Comfort Care Code Status Assessed: Yes Code Status: Full Code Critical Care: No Time Spent Managing PTS Care (In Minutes): 45
--- NOTE | 2023-05-10 07:13 | P.PN ---
Date of Service: 05/08/23 Subjective We started her tube feeds and she started having pain once again. Her tube feedings have been held.We will discuss with surgery regarding further outcome Physical Examination - Vital Signs reviewed - Physical Exam General: Alert, In no apparent distress, Oriented x3, Cachectic, Other (emaciated) HEENT: Cachectic appearing and temporal wasting Respiratory: Clear to auscultation bilaterally, Normal air movement Cardiovascular: Regular rate/rhythm, Normal S1 S2, No murmurs Gastrointestinal: Normal bowel sounds, Soft and benign, Non-distended, No tenderness, Guarding (scaphoid abdomen); Ileostomy; G/J tube Musculoskeletal: No clubbing, No swelling, No tenderness Neurological: Sensation intact, Cranial nerves 3-12 intact, Normal affect, Abnormal strength Assessment & Plan - Problems (Diagnosis) (1) SLE (systemic lupus erythematosus) Current Visit: Yes Status: Acute (2) FAP (familial adenomatous polyposis) Current Visit: Yes Status: Acute (3) Severe malnutrition Current Visit: Yes Status: Acute (4) Gastroparesis Current Visit: Yes Status: Acute - Plan Continue with POC as mentioned below: 1. Continue with IV nutrition 2. Speech therapy consultation appreciated 3. Dietary consultation appreciated 4. Thyroid studies and will also check cortisol level and inflammatory markers. 5. Education re: use of G/J tube we will try to feed her with the J-tube and see if patient tolerates it.. At this time, we will continue to hold her tube feeds. 6. GI/DVT prophylaxis Discharge Plan: Home Plan to discharge in: Greater than 2 days - Advance Directives Does patient have a Living Will: No Does patient have a Durable POA for Healthcare: No - Code Status/Comfort Care Code Status Assessed: Yes Code Status: Full Code Critical Care: No Time Spent Managing PTS Care (In Minutes): 45
--- NOTE | 2023-05-10 07:23 | P.PN ---
Date of Service: 05/10/23 Subjective Patient continues to do well with no new complaints. Gained 4lbs. Clinical symptoms are stable. Do not want to proceed with IV nutrition at discharge. Patient's living environment probably is not suitable for this. If we need to do this in a long-term placement at a facility would be the best thing to do. We will probably discharge her over the next 24-48hrs once we know the status of her nutritional intake and possible intervention in the morning. Physical Examination - Vital Signs reviewed - Physical Exam General: Alert, In no apparent distress, Oriented x3, Cachectic, Other (emac iated) HEENT: Cachectic appearing and temporal wasting Respiratory: Clear to auscultation bilaterally, Normal air movement Cardiovascular: Regular rate/rhythm, Normal S1 S2, No murmurs Gastrointestinal: Normal bowel sounds, Soft and benign, Non-distended, No tenderness, Guarding (scaphoid abdomen); Ileostomy; G/J tube Musculoskeletal: No clubbing, No swelling, No tenderness Neurological: Abnormal strength Assessment & Plan - Problems (Diagnosis) (1) SLE (systemic lupus erythematosus) Current Visit: Yes Status: Acute (2) FAP (familial adenomatous polyposis) Current Visit: Yes Status: Acute (3) Severe malnutrition Current Visit: Yes Status: Acute (4) Gastroparesis Current Visit: Yes Status: Acute - Plan Continue with POC as mentioned below: 1. Continue with IV nutrition; gained 5lbs 2. Speech therapy consultation appreciated 3. Dietary consultation appreciated 4. May start meds for gastroparesis 5. Education re: use of G/J tube we will try to feed her with the J-tube and see if patient tolerates it.. At this time, we will continue to hold her tube feeds. 6. GI/DVT prophylaxis Discharge Plan: Home Plan to discharge in: Greater than 2 days - Advance Directives Does patient have a Living Will: No Does patient have a Durable POA for Healthcare: No - Code Status/Comfort Care Code Status Assessed: Yes Code Status: Full Code Critical Care: No Time Spent Managing PTS Care (In Minutes): 45
[2023-05-10] MEDS: AMINO ACIDS 4.25 %/DEXTROSE 5% 2,000 ML IV SCH (17:25)
[2023-05-11] MEDS: NA CHLORIDE 0.9% 1,000 ML IV SCH (05:31)
[2023-05-11 07:01] LABS: Absolute Lymphocytes (CBC) 1.7 K/uL (0.7-4.9); Hematocrit 34.4 % (36.0-45.0); Lymphocytes % 33.4 % (15.3-44.8); MCV 90.6 fL (80-100); MPV 8.6 fL (7.6-11.3); RBC Red Blood Cell Count 3.79 M/uL (3.86-4.86)
[2023-05-11 07:12] LABS: Magnesium 2.2 mg/dL (1.6-2.4); Phosphorus 3.1 mg/dL (2.5-4.9); Potassium 3.8 mEq/L (3.5-5.1)
[2023-05-11] MEDS: ERYTHROMYCIN 200 MG/5ML 100ML PO SCH ×3 (08:26→16:30)
[2023-05-11 14:48] VITALS: BMI 14.3
[2023-05-11 16:28] VITALS: BP 134/60; TEMP 98.7
[2023-05-11] MEDS: DEXTROSE 5% IV SCH ×3 (17:00)
[2023-05-11] MEDS: AMINO ACIDS IV SCH ×3 (17:00)
[2023-05-11] MEDS: MULTIVITAMINS IV SCH ×3 (17:00)
[2023-05-11] MEDS: LIPIDS 20% IV SCH ×3 (17:00)
== END 2023-05-11 18:30 | disposition home health service (06) | DRG 641 ==
LOC: 4TH 13:02
PROVIDERS: ADMIT Surgery; ATTEND Hospitalist
PROC: 3E0336Z Introduction of Nutritional Substance into Peripheral Vein, Percutaneous Approach (ICD-10-PCS; principal; 2023-05-04)
PROC: 02HV33Z Insertion of Infusion Device into Superior Vena Cava, Percutaneous Approach (ICD-10-PCS; 2023-05-06)
DX: E43 Unspecified severe protein-calorie malnutrition (principal); Z68.1 Body mass index [BMI] 19.9 or less, adult; R64 Cachexia; M79.7 Fibromyalgia; D12.6 Benign neoplasm of colon, unspecified; M32.9 Systemic lupus erythematosus, unspecified; F17.200 Nicotine dependence, unspecified, uncomplicated; Z93.2 Ileostomy status; Z88.5 Allergy status to narcotic agent; Z88.8 Allergy status to other drugs, medicaments and biological substances; Z90.49 Acquired absence of other specified parts of digestive tract; Z79.899 Other long term (current) drug therapy; Z90.710 Acquired absence of both cervix and uterus
CPT/HCPCS: 36415; 36569; 71045; 74018; 74176; 80048; 80053; 82040; 82533; 82607; 82947; 83540; 83735; 84100; 84134; 84439; 84443; 85025; 85610; 85730; 86140; 92610; J1720; J2405; J7030

== ENCOUNTER 2024-02-29 10:37 | Day surgery (SDC) | payer OTHER ==
[2024-02-29] MEDS: Ringers Lactate 1,000 ML IV ONE (11:10)
[2024-02-29] MEDS ORDERED: propofoL 200 MG/20 ML VIAL IV ONE (11:52)
[2024-02-29] MEDS ORDERED: LIDOCAINE 1% MPF 5 ML VIAL ONE (11:52)
[2024-02-29 12:14] LABS: Absolute Lymphocytes (CBC) 1.7 K/uL (0.7-4.9); Absolute Monocytes 0.3 K/uL (0.1-1.3); Absolute Neutrophil 2.2 K/uL (1.8-8.0); Basophils % 0.8 % (0-1.3); Eosinophils % 0.7 % (0-4.4); Hematocrit 39.9 % (36.0-45.0); Hemoglobin 13.5 g/dL (12.0-15.0); Lymphocytes % 39.9 % (15.3-44.8); MCH 32.2 pg (27.0-35.0); MCHC 33.8 g/dL (32.0-36.0); MCV 95.5 fL (80-100); MPV 9.9 fL (7.6-11.3); Monocytes % 7.2 % (3.3-12.3); Neutrophils % 51.4 % (41.7-73.7); Nucleated Red Blood Cells % 0.1 % (0-0); Platelets 172 thou/uL (152-406); RBC Red Blood Cell Count 4.18 M/uL (3.86-4.86); Red Cell Distribution Width 14.6 % (12.1-15.2)
[2024-02-29 12:32] LABS: Anion Gap 4.1 mEq/L (5.0-15.0); Potassium 4.1 mEq/L (3.5-5.1)
--- NOTE | 2024-02-29 12:40 | EKG ---
Test Date: 2024-02-29 Test Time: 10:53:43 Audio Visual Collections Coordinator: RHONDA MEASUREMENT RESULTS: Intervals: Rate: 54 OK: 120 QRSD: 72 QT: 418 QTc: 396 Osborn: P: OK: 120 QRS: -50 T: -14 INTERPRETIVE STATEMENTS: Sinus bradycardia Left axis deviation Low voltage QRS Abnormal ECG Compared to ECG 04/22/2023 12:50:27 Left-axis deviation now present Low QRS voltage now present Myocardial infarct finding no longer present Electronically Signed On 02-29-24 12:39:57 CDT by Gaudencio Coffey
[2024-02-29 15:11] VITALS: BP 133/50; TEMP 98; O2SAT 96
== END 2024-02-29 14:35 | disposition home or self-care (01) ==
LOC: OR 10:37
PROVIDERS: ATTEND Surgery
PROC: 0DB98ZX Excision of Duodenum, Via Natural or Artificial Opening Endoscopic, Diagnostic (ICD-10-PCS; 2024-02-29)
PROC: 0DB68ZX Excision of Stomach, Via Natural or Artificial Opening Endoscopic, Diagnostic (ICD-10-PCS; 2024-02-29)
PROC: 0DC68ZZ Extirpation of Matter from Stomach, Via Natural or Artificial Opening Endoscopic (ICD-10-PCS; principal; 2024-02-29 12:00)
DX: R63.39 Other feeding difficulties (principal); R10.13 Epigastric pain; E46 Unspecified protein-calorie malnutrition; K29.50 Unspecified chronic gastritis without bleeding; K94.23 Gastrostomy malfunction; Z18.9 Retained foreign body fragments, unspecified material
CPT/HCPCS: 43247; 43239; 93005; 85025; 80048; 36415; 88312; 88300; 88305; J2704; J2001; J7120

== ENCOUNTER 2024-05-15 14:59 | Emergency (ER) | payer OTHER ==
[2024-05-15] MEDS ORDERED: DIPHENHYDRAMINE 50 MG/ML VIAL ONE (15:48)
[2024-05-15] MEDS ORDERED: FENTANYL CITR 100 MCG/2 ML ONE (15:48)
[2024-05-15] MEDS ORDERED: METOCLOPRAMIDE 10 MG/2mL INJ ONE (15:48)
[2024-05-15] MEDS ORDERED: NA CHLORIDE 0.9% 1,000 ML ONE (15:49)
[2024-05-15] MEDS ORDERED: NA CHLORIDE 0.9% 50 ML ONE (15:49)
[2024-05-15 15:56] LABS: Absolute Basophils 0.1 K/uL (0-0.5); Absolute Lymphocytes (CBC) 2.7 K/uL (0.7-4.9); Absolute Monocytes 0.6 K/uL (0.1-1.3); Absolute Neutrophil 4.6 K/uL (1.8-8.0); Basophils % 0.9 % (0-1.3); Eosinophils % 0.1 % (0-4.4); Hematocrit 45.4 % (36.0-45.0); Hemoglobin 15.6 g/dL (12.0-15.0); Lymphocytes % 33.9 % (15.3-44.8); MCH 32.5 pg (27.0-35.0); MCHC 34.5 g/dL (32.0-36.0); MCV 94.2 fL (80-100); MPV 9.3 fL (7.6-11.3); Monocytes % 7.6 % (3.3-12.3); Neutrophils % 57.5 % (41.7-73.7); Platelets 219 thou/uL (152-406); RBC Red Blood Cell Count 4.82 M/uL (3.86-4.86); Red Cell Distribution Width 13.7 % (12.1-15.2)
[2024-05-15 16:13] LABS: Albumin 4.2 g/dL (3.4-5.0); Albumin/Globulin Ratio 1.2 (1.1-1.8); Bilirubin Direct 0.2 mg/dL (0-0.2); Bilirubin Indirect, Calculated 0.5 mg/dL (0.2-0.8); Bilirubin Total 0.7 mg/dL (0.2-1.0); Globulin 3.5 g/dL (2.3-3.5); Magnesium 2.2 mg/dL (1.6-2.4); Protein, Total 7.7 g/dL (6.4-8.2); Troponin High Sensitivity 6.2 pg/mL (<58.9)
--- NOTE | 2024-05-15 16:34 | RAD REPORT ---
EXAM DESCRIPTION: RAD - Chest Single View - 05/15/2024 4:26 pm CLINICAL HISTORY: CHEST PAIN COMPARISON: Abdomen 1 View (KUB) dated 05/08/2023; Chest Single View dated 05/06/2023; Abdomen 1 View (KUB) dated 05/06/2023; Chest Single View dated 04/29/2023 FINDINGS: Lines: None. Lungs: No evidence of edema or pneumonia. Hyperexpanded lungs. Pleural: No significant pleural effusions or pneumothorax. Cardiac: The heart size is within normal limits. Mediastinum: Within normal limits. Bones: No acute fractures. ACDF in the cervical spine. Other: None IMPRESSION: No acute cardiopulmonary disease.
--- NOTE | 2024-05-15 16:48 | RAD REPORT ---
EXAM DESCRIPTION: CTAbdomen Pelvis W Contrast - 05/15/2024 4:40 pm CLINICAL HISTORY: ABD PAIN COMPARISON: Abdomen Pelvis W Contrast dated 04/29/2023; Abdomen Pelvis W Contrast dated 04/16/2023; CT ABD PELVIS W CONTRAST dated 01/30/2015; CT ABD PELVIS W CONTRAST dated 11/08/2013 TECHNIQUE: CT of the abdomen and pelvis was performed with IV contrast. All CT scans are performed using dose optimization technique as appropriate and may include automated exposure control or mA/KV adjustment according to patient size. FINDINGS: Lower chest: No acute abnormality. Liver: Too small to characterize liver lesions which are likely benign. Biliary: Cholecystectomy. Stomach: No significant focal abnormality. Duodenum: No significant focal abnormality. Pancreas: No significant abnormality. Spleen: No significant abnormality. Adrenal: No suspicious lesions. Kidney/ureter: No hydronephrosis. No renal calculi. Retroperitoneum: No retroperitoneal adenopathy. Vascular: No aneurysm. Mild atherosclerosis . Bowel: No significant focal abnormality. Right lower quadrant ileostomy. Peritoneum: No ascites or free air. Bladder: Grossly unremarkable. Reproductive: Hysterectomy Bones: No acute fracture. Other: n/a IMPRESSION: No acute intra-abdominal or pelvic finding.
--- NOTE | 2024-05-15 17:24 | ER ---
Nurse's Notes [facility] Name: Tamara Sotelo Age: 63 yrs Sex: Female : 1960 Arrival Date: 05/15/2024 Time: 14:59 Bed 15 Private MD: Diagnosis: Abdominal pain, unspecified Presentation: 05/15 15:07 Coronavirus screen: Client denies travel out of the [place] in the last 14 days. At this ll1 time, the client does not indicate any symptoms associated with coronavirus-19. Ebola Screen: Patient denies travel to an Ebola-affected area in the 21 days before illness onset. Initial Sepsis Screen: Does the patient meet any 2 criteria? No. Patient's initial sepsis screen is negative. Does the patient have a suspected source of infection? No. Patient's initial sepsis screen is negative. Risk Assessment: Do you want to hurt yourself or someone else? Patient reports no desire to harm self or others. Onset of symptoms was May 12, 2024. 15:07 Method Of Arrival: Ambulatory ll1 15:07 Acuity: VAL 2 ll1 15:12 Chief complaint: Patient states: Abdominal pain, N/V, fatigue, weak for 4 days. CP ll1 started today. Had blood work with the cancer center on Thursday, no results called to her. Triage Assessment: 15:13 General: Appears distressed, uncomfortable, ill, Behavior is cooperative, appropriate ll1 for age, anxious. Pain: Complains of pain in abdomen Quality of pain is described as aching, crampy. Cardiovascular: Reports chest pain. GI: Reports lower abdominal pain, upper abdominal pain, bloating, nausea, vomiting, loosing weight. Historical: - Allergies: 15:07 Codeine; ll1 15:07 Demerol; ll1 15:07 Dilaudid; ll1 15:07 Morphine; ll1 15:07 Hope; ll1 15:07 Opiods; ll1 15:07 Oxycodone; ll1 - PMHx: 15:07 FAP; Gastroparesis; Lupus erythematosus; ll1 - PSHx: 15:07 feeding tube; hysterectomy; ileostomy; ll1 15:14 feeding tube taken out; ll1 - Immunization history:: Adult Immunizations up to date. - Infectious Disease History:: Denies. - Social history:: Smoking status: Patient reports the use of cigarette tobacco products, smokes one pack cigarettes per day. Screenin:09 [facility] ED Fall Risk Assessment (Adult) History of falling in the last 3 months, db including since admission No falls in past 3 months (0 pts) Confusion or Disorientation No (0 pts) Intoxicated or Sedated No (0 pts) Impaired Gait No (0 pts) Mobility Assist Device Used No (0 pt) Altered Elimination Yes (1 pt) Score/Fall Risk Level 0 - 2 = Low Risk Oriented to surroundings, Maintained a safe environment. Abuse screen: Denies threats or abuse. Denies injuries from another. Nutritional screening: No deficits noted. Tuberculosis screening: No symptoms or risk factors identified. Assessment: 16:09 Reassessment: Patient appears in no apparent distress at this time. Patient and/or db family updated on plan of care and expected duration. Pain level reassessed. Patient is alert, oriented x 3, equal unlabored respirations, skin warm/dry/pink. ABD PAIN AND CHEST PAIN. General: Appears uncomfortable, Behavior is cooperative, anxious. Pain: Pain does not radiate. Pain began gradually. Neuro: Level of Consciousness is awake, alert, obeys commands, Oriented to person, place, time, situation. 17:57 Reassessment: Patient appears in no apparent distress at this time. Patient and/or db family updated on plan of care and expected duration. Pain level reassessed. Patient is alert, oriented x 3, equal unlabored respirations, skin warm/dry/pink. Patient states feeling better. Patient states symptoms have improved. Vital Signs: 15:07 BP 114 / 75; Pulse 112; Resp 20; Temp 98.6; Pulse Ox 96% ; Weight 36.74 kg; Height 5 ll1 ft. 4 in. ; Pain 7/10; 15:33 BP 131 / 96; Pulse 108; Resp 14; Pulse Ox 99% on R/A; db 16:00 BP 125 / 89; Pulse 86; Resp 18; Pulse Ox 99% on R/A; db 17:30 BP 128 / 86; Pulse 84; Resp 18; Temp 98.6; Pulse Ox 98% ; db 15:07 Body Mass Index 13.90 (36.74 kg, 162.56 cm) ll1 15:07 Pain Scale: Adult ll1 ED Course: 15:02 Patient arrived in ED. mg5 15:07 Arm band placed on Patient placed in an exam room, on a stretcher. ll1 15:08 Triage completed. ll1 15:11 Behzad Rubin MD is Attending Physician. rt 15:31 Karen Odom, DORA is Primary Nurse. db 15:45 No provider procedures requiring assistance completed. Inserted saline lock: 20 gauge db in right forearm, using aseptic technique. Blood collected. O2 via ROOM AIR. 16:28 XRAY Chest (1 view) In Process Unspecified. EDMS 16:41 CT Abd/Pelvis - IV Contrast Only In Process Unspecified. EDMS 17:57 Patient has correct armband on for positive identification. Placed in gown. Bed in low db position. Call light in reach. Side rails up X 1. Provided Education on: DISCHARGE. Client placed on continuous cardiac and pulse oximetry monitoring. NIBP monitoring applied. monitoring and evaluation advisor on. Pulse ox on. NIBP on. Warm blanket given. Pillow given. 17:57 IV discontinued, intact, bleeding controlled, No redness/swelling at site. db Administered Medications: 16:00 Drug: fentaNYL (PF) IVP 50 mcg IVP once Route: IVP; Site: right forearm; db 17:58 Follow up: Response: No adverse reaction db 16:00 Drug: metoCLOPramide IVP 10 mg IVP once; over 1 to 2 minutes Route: IVP; Site: right db forearm; 17:58 Follow up: Response: No adverse reaction db 16:00 Drug: diphenhydrAMINE IVP 25 mg IVP once Route: IVP; Site: right forearm; db 17:58 Follow up: Response: No adverse reaction db 16:00 Drug: NS 0.9% IV 1000 ml IV at 1 bolus Per protocol; 1000 mL bolus Route: IV; Rate: 1 db bolus; Site: right forearm; 17:58 Follow up: Response: No adverse reaction; IV Status: Completed infusion; IV Intake: db 1000ml Medication: 16:09 VIS not applicable for this client. db Intake: 17:58 IV: 1000ml; Total: 1000ml. db Outcome: 17:22 Discharge ordered by . rt 17:57 Discharged to home ambulatory, with family, db 17:57 Condition: stable 17:57 Discharge instructions given to patient, Instructed on discharge instructions, follow up and referral plans. 17:59 Patient left the ED. db Signatures: Dispatcher [employer] Roger Mao RN RN ll1 Karen Odom RN RN db Behzad Rubin MD MD rt [place], [place] mg5
--- NOTE | 2024-05-15 17:24 | EDPHYS ---
Physician Documentation [facility] Name: Tamara Sotelo Age: 63 yrs Sex: Female : 1960 Arrival Date: 05/15/2024 Time: 14:59 Bed 15 Private MD: ED Physician Behzad Rubin HPI: 05/15 16:59 This 63 yrs old Female presents to ER via Ambulatory with complaints of Chest Pain. rt 16:59 Patient presents to the ED with generalized abdominal pain., Worse in epigastrium. rt Patient does have history of gastroparesis. Reports nausea. Patient denies other acute complaints at this time, symptoms are moderate in severity, no other aggravating or alleviating factors.. 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 - Infectious Disease History:: Denies. - Social history:: Smoking status: Patient reports the use of cigarette tobacco products, smokes one pack cigarettes per day. ROS: 16:59 Constitutional: Negative for fever, chills, and weight loss, Cardiovascular: Negative rt for chest pain, palpitations, and edema, Respiratory: Negative for shortness of breath, cough, wheezing, and pleuritic chest pain, MS/Extremity: Negative for injury and deformity, Skin: Negative for injury, rash, and discoloration, Neuro: Negative for headache, weakness, numbness, tingling, and seizure, 16:59 Abdomen/GI: Positive for abdominal pain, nausea and vomiting, Exam: 16:59 Constitutional: This is a well developed, well nourished patient who is awake, alert, rt and in no acute distress. Head/Face: Normocephalic, atraumatic. Chest/axilla: Normal chest wall appearance and motion. Nontender with no deformity. No lesions are appreciated. Cardiovascular: Regular rate and rhythm with a normal S1 and S2. No gallops, murmurs, or rubs. Normal PMI, no JVD. No pulse deficits. Respiratory: Lungs have equal breath sounds bilaterally, clear to auscultation and percussion. No rales, rhonchi or wheezes noted. No increased work of breathing, no retractions or nasal flaring. Skin: Warm, dry with normal turgor. Normal color with no rashes, no lesions, and no evidence of cellulitis. MS/ Extremity: Pulses equal, no cyanosis. Neurovascular intact. Full, normal range of motion. Neuro: Awake and alert, GCS 15, oriented to person, place, time, and situation. Cranial nerves II-XII grossly intact. Motor strength 5/5 in all extremities. Sensory grossly intact. Cerebellar exam normal. Normal gait. 16:59 ECG was reviewed by the Attending Physician. 16:59 Abdomen/GI: Colostomy bag in place, mild tenderness diffuse without rebound, guarding, distention, Vital Signs: 15:07 BP 114 / 75; Pulse 112; Resp 20; Temp 98.6; Pulse Ox 96% ; Weight 36.74 kg; Height 5 ll1 ft. 4 in. ; Pain 7/10; 15:33 BP 131 / 96; Pulse 108; Resp 14; Pulse Ox 99% on R/A; db 16:00 BP 125 / 89; Pulse 86; Resp 18; Pulse Ox 99% on R/A; db 17:30 BP 128 / 86; Pulse 84; Resp 18; Temp 98.6; Pulse Ox 98% ; db 15:07 Body Mass Index 13.90 (36.74 kg, 162.56 cm) ll1 15:07 Pain Scale: Adult ll1 MDM: 15:12 Patient medically screened. rt 17:23 Differential diagnosis: Gastroparesis, bowel obstruction, pancreatitis. HEART Score: rt History: Slightly Suspicious (0), ECG: Normal (0), Age: > 45 and < 65 years (1), Risk Factors: 1 or 2 risk factors (1), Troponin: < or = 1 x Normal Limit (0), Total Score = 2. Data reviewed: vital signs, nurses notes, lab test result(s), EKG, radiologic studies. Consideration of Admission/Observation Escalation of care including admission/observation considered. Symptoms improving with treatment in the ED, not likely cardiac etiology. Reassuring EKG, labs, CT scan, no indications for admission at this time, stable for outpatient care.. I considered the following discharge prescriptions or medication management in the emergency department Medications were administered in the Emergency Department. See MAR. Independent interpretation of the following test(s) in the Emergency Department X-Ray: My interpretation is No pneumonia seen on interpretation of x-ray images. Care significantly affected by the following chronic conditions: Gastroparesis. Counseling: I had a detailed discussion with the patient and/or guardian regarding the historical points, exam findings, and any diagnostic results supporting the discharge/admit diagnosis, lab results, radiology results, the need for outpatient follow up. Response to treatment: the patient's symptoms have markedly improved after treatment. 05/15 15:22 Order name: Basic Metabolic Panel; Complete Time: 16:16 rt 05/15 15:22 Order name: CBC with Diff; Complete Time: 16:12 rt 05/15 15:22 Order name: LFT's; Complete Time: 16:16 rt 05/15 15:22 Order name: Magnesium; Complete Time: 16:16 rt 05/15 15:22 Order name: Troponin HS; Complete Time: 16:16 rt 05/15 15:22 Order name: Lipase; Complete Time: 16:16 rt 05/15 15:22 Order name: XRAY Chest (1 view); Complete Time: 16:38 rt 05/15 15:22 Order name: CT Abd/Pelvis - IV Contrast Only; Complete Time: 16:50 rt 05/15 15:22 Order name: EKG; Complete Time: 15:22 rt 05/15 15:22 Order name: Cardiac monitoring; Complete Time: 16:07 rt 05/15 15:22 Order name: EKG - Nurse/Tech; Complete Time: 16:07 rt 05/15 15:22 Order name: IV Saline Lock; Complete Time: 16:07 rt 05/15 15:22 Order name: Labs collected and sent; Complete Time: 16:07 rt 05/15 15:22 Order name: O2 Per Protocol; Complete Time: 16:08 rt 05/15 15:22 Order name: O2 Sat Monitoring; Complete Time: 16:08 rt EC:59 Rate is 110 beats/min. Rhythm is regular, Sinus tachycardia with No ectopy. QRS [place] is rt Normal. NH interval is normal. QRS interval is normal. QT interval is normal. No Q waves. T waves are Normal. No ST changes noted. Interpreted by me. Administered Medications: 16:00 Drug: fentaNYL (PF) IVP 50 mcg IVP once Route: IVP; Site: right forearm; db 17:58 Follow up: Response: No adverse reaction db 16:00 Drug: metoCLOPramide IVP 10 mg IVP once; over 1 to 2 minutes Route: IVP; Site: right db forearm; 17:58 Follow up: Response: No adverse reaction db 16:00 Drug: diphenhydrAMINE IVP 25 mg IVP once Route: IVP; Site: right forearm; db 17:58 Follow up: Response: No adverse reaction db 16:00 Drug: NS 0.9% IV 1000 ml IV at 1 bolus Per protocol; 1000 mL bolus Route: IV; Rate: 1 db bolus; Site: right forearm; 17:58 Follow up: Response: No adverse reaction; IV Status: Completed infusion; IV Intake: db 1000ml Disposition Summary: 05/15/24 17:22 Discharge Ordered Notes: Location: Home rt Problem: new rt Symptoms: have improved rt Condition: Stable rt Diagnosis - Abdominal pain, unspecified rt Followup: rt - With: Private Physician - When: 2 - 3 days - Reason: Discharge Instructions: - Discharge Summary Sheet rt - Abdominal Pain, Adult rt Forms: - Medication Reconciliation Form rt - Antibiotic Education rt - Prescription Opioid Use rt - Patient Portal Instructions rt - Leadership Thank You Letter rt Signatures: Dispatcher [employer] EDElisa Snider FNP-[place] EXPLOSIVE EXPERT-Csnw Roger Ruiz RN RN [facility] Karen Odom RN RN db Behzad Rubin MD MD rt Corrections: (The following items were deleted from the chart) 15:22 15:22 BASIC METABOLIC PANEL+C.LAB.BRZ ordered. EDMS EDMS 15:22 15:22 CBC+H.LAB.BRZ ordered. EDMS EDMS 15:22 15:22 HEPATIC FUNCTION+C.LAB.BRZ ordered. EDMS EDMS 15:22 15:22 MAGNESIUM+C.LAB.BRZ ordered. EDMS EDMS 15:22 15:22 Troponin High Sensitivity+C.LAB.BRZ ordered. EDMS EDMS 15:22 15:22 LIPASE+C.LAB.BRZ ordered. EDMS EDMS 15:23 15:23 Abdomen Pelvis W Con+CT.RAD.BRZ ordered. EDMS EDMS
[2024-05-16 01:01] VITALS: BP 128/86; TEMP 98.6; O2SAT 98
--- NOTE | 2024-05-16 13:05 | EKG ---
Test Date: 2024-05-15 Test Time: 15:37:44 Bag Repairer: JIA MEASUREMENT RESULTS: Intervals: Rate: 110 WY: 126 QRSD: 66 QT: 342 QTc: 462 [place]: P: 90 WY: 126 QRS: 82 T: 72 INTERPRETIVE STATEMENTS: Sinus tachycardia Right atrial enlargement Borderline ECG Compared to ECG 02/29/2024 10:53:43 Atrial abnormality now present Sinus bradycardia no longer present Left-axis deviation no longer present Electronically Signed On 05-16-24 13:03:01 CDT by Gaudencio Coffey
== END 2024-05-15 17:59 | disposition home or self-care (01) ==
LOC: ER 14:59
DX: R10.13 Epigastric pain (principal); R11.2 Nausea with vomiting, unspecified; Z93.3 Colostomy status
CPT/HCPCS: 85025; 80048; 36415; 83735; 80076; 84484; 83690; 74177; 71045; Q9967; J2765; J1200; J3010; J7030; 93005

== ENCOUNTER 2024-10-03 10:57 | Inpatient (IN) | payer OTHER ==
[2024-10-03] MEDS ORDERED: ONDANSETRON 4 MG/2 ML VIAL ONE ×2 (11:30→17:09)
[2024-10-03] MEDS ORDERED: FENTANYL CITR 100 MCG/2 ML ONE ×2 (11:30→17:09)
[2024-10-03 11:34] LABS: Absolute Basophils 0.1 K/uL (0-0.5); Absolute Lymphocytes (CBC) 1.8 K/uL (0.7-4.9); Absolute Monocytes 0.4 K/uL (0.1-1.3); Absolute Neutrophil 2.7 K/uL (1.8-8.0); Basophils % 1.1 % (0-1.3); Eosinophils % 0.4 % (0-4.4); Hematocrit 41.9 % (36.0-45.0); Hemoglobin 14.2 g/dL (12.0-15.0); Lymphocytes % 36.4 % (15.3-44.8); MCH 32.5 pg (27.0-35.0); MCV 95.6 fL (80-100); MPV 8.6 fL (7.6-11.3); Monocytes % 7.6 % (3.3-12.3); Neutrophils % 54.5 % (41.7-73.7); Platelets 188 thou/uL (152-406); RBC Red Blood Cell Count 4.39 M/uL (3.86-4.86); Red Cell Distribution Width 14.1 % (12.1-15.2)
[2024-10-03 11:58] LABS: Albumin/Globulin Ratio 1.3 (1.1-1.8); Anion Gap 6.8 mEq/L (5.0-15.0); Bilirubin Total 0.4 mg/dL (0.2-1.0); Globulin 3.2 g/dL (2.3-3.5); Magnesium 2.2 mg/dL (1.6-2.4); Potassium 3.8 mEq/L (3.5-5.1); Protein, Total 7.2 g/dL (6.4-8.2); Troponin High Sensitivity 6.4 pg/mL (<58.9)
--- NOTE | 2024-10-03 14:41 | RAD REPORT ---
EXAMINATION: ONE VIEW CHEST XR CLINICAL INDICATION: Female, 64 years old.,CHEST PAIN TECHNIQUE: Frontal chest projection is submitted. Examination is limited by patient positioning and t echnique. COMPARISON: 05/15/2024 FINDINGS: The lungs are diffusely emphysematous but grossly clear. No pneumothorax or sizable effusion. The he art is normal in size. Mediastinal contours are unremarkable. IMPRESSION: No acute intrathoracic abnormalities.
--- NOTE | 2024-10-03 14:45 | ER ---
Nurse's Notes [facility] Name: Tamara Sotelo Age: 64 yrs Sex: Female : 1960 Arrival Date: 10/03/2024 Time: 10:57 Bed 13 Private MD: Diagnosis: Unstable angina Presentation: 10/03 11:11 Chief complaint: Patient states: L sided CP with dry cough for 2 days. Coronavirus ll1 screen: Client denies travel out of the [place] in the last 14 days. cough unrelated to allergies, fatigue, muscle pain, Client presents with at least one sign or symptom that may indicate coronavirus-19. Standard/surgical mask placed on the client. Ebola Screen: Patient denies travel to an Ebola-affected area in the 21 days before illness onset. Initial Sepsis Screen: Does the patient meet any 2 criteria? No. Patient's initial sepsis screen is negative. Does the patient have a suspected source of infection? No. Patient's initial sepsis screen is negative. Risk Assessment: Do you want to hurt yourself or someone else? Patient reports no desire to harm self or others. Onset of symptoms was October 02, 2024. 11:11 Method Of Arrival: Wheelchair ll1 11:11 Acuity: VAL 3 ll1 Historical: - Allergies: 11:11 Demerol; ll1 11:11 Dilaudid; ll1 11:11 Morphine; ll1 11:11 Codeine; ll1 11:11 [place]; ll1 11:11 Opiods; ll1 11:11 Oxycodone; ll1 - PMHx: 11:11 FAP; Gastroparesis; Lupus erythematosus; diversion colitis (ileostomy); ll1 - PSHx: 11:11 feeding tube; feeding tube taken out; hysterectomy; ileostomy; ll1 - Immunization history:: Adult Immunizations up to date. - Social history:: Smoking status: Patient reports the use of cigarette tobacco products, smokes one pack cigarettes per day. Screenin:05 [facility] ED Fall Risk Assessment (Adult) History of falling in the last 3 months, rs5 including since admission No falls in past 3 months (0 pts) Confusion or Disorientation No (0 pts) Intoxicated or Sedated No (0 pts) Impaired Gait Yes (1 pt) Mobility Assist Device Used Yes (1 pt) Altered Elimination No (0 pt) Score/Fall Risk Level 0 - 2 = Low Risk Oriented to surroundings, Maintained a safe environment. Abuse screen: Denies threats or abuse. Nutritional screening: No deficits noted. Tuberculosis screening: No symptoms or risk factors identified. Assessment: 11:05 General: Appears uncomfortable, Behavior is cooperative. Pain: Complains of pain in rs5 chest Pain does not radiate. Pain currently is 9 out of 10 on a pain scale. Quality of pain is described as aching, Pain began suddenly, Is continuous. Neuro: Level of Consciousness is awake, alert, obeys commands, Oriented to person, place, time, situation. Cardiovascular: Rhythm is regular. Respiratory: Reports cough that is Airway is patent Respiratory effort is even, unlabored, Respiratory pattern is regular, symmetrical. GI: Abdomen is round non-distended, Abd is soft and non tender X 4 quads. 11:05 : No signs and/or symptoms were reported regarding the genitourinary system. EENT: No rs5 signs and/or symptoms were reported regarding the EENT system. Derm: Skin is intact, Skin is pink, warm \T\ dry. Musculoskeletal: Range of motion: intact in all extremities. 12:10 Reassessment: Patient and/or family updated on plan of care and expected duration. Pain rs5 level reassessed. Patient is alert, oriented x 3, equal unlabored respirations, skin warm/dry/pink. 13:15 Reassessment: Patient and/or family updated on plan of care and expected duration. Pain rs5 level reassessed. Patient is alert, oriented x 3, equal unlabored respirations, skin warm/dry/pink. Patient denies pain at this time. Patient states feeling better. Patient states symptoms have improved. 14:20 Reassessment: Patient and/or family updated on plan of care and expected duration. Pain rs5 level reassessed. Patient is alert, oriented x 3, equal unlabored respirations, skin warm/dry/pink. 15:37 Reassessment: Patient and/or family updated on plan of care and expected duration. Pain rs5 level reassessed. Patient is alert, oriented x 3, equal unlabored respirations, skin warm/dry/pink. 17:02 Reassessment: Patient and/or family updated on plan of care and expected duration. Pain rs5 level reassessed. Patient is alert, oriented x 3, equal unlabored respirations, skin warm/dry/pink. 18:10 Reassessment: Patient and/or family updated on plan of care and expected duration. Pain rs5 level reassessed. Patient is alert, oriented x 3, equal unlabored respirations, skin warm/dry/pink. 18:37 Reassessment: Patient and/or family updated on plan of care and expected duration. Pain rs5 level reassessed. Patient is alert, oriented x 3, equal unlabored respirations, skin warm/dry/pink. Vital Signs: 11:11 BP 130 / 108; Pulse 72; Resp 18; Temp 98; Pulse Ox 100% on R/A; Weight 37.19 kg; Height ll1 5 ft. 4 in. ; Pain 8/10; 12:01 BP 125 / 82; Pulse 74; Resp 17; Pulse Ox 98% on R/A; rs5 13:01 BP 117 / 79; Pulse 71; Resp 17; Pulse Ox 98% on R/A; rs5 15:38 BP 121 / 83; Pulse 63; Resp 17; Pulse Ox 98% on R/A; rs5 18:37 BP 124 / 81; Pulse 74; Resp 17; Pulse Ox 99% on R/A; rs5 11:11 Body Mass Index 14.08 (37.19 kg, 162.56 cm) ll1 11:11 Pain Scale: Adult ll1 ED Course: 10:58 Patient arrived in ED. im 10:58 [facility]on Posadas [facility]C [facility] 10:58 Tyrone Manning MD is Attending Physician. dr5 11:01 Salomon Arias RN is Primary Nurse. rs5 11:05 Patient has correct armband on for positive identification. Placed in gown. Bed in low rs5 position. Call light in reach. Side rails up X2. Client placed on continuous cardiac and pulse oximetry monitoring. NIBP monitoring applied. mail clerk on. 11:10 Arm band placed on Patient placed in an exam room, on a stretcher. ll1 11:10 Inserted saline lock: 22 gauge in right antecubital area, using aseptic technique. rs5 Blood collected. Flushed with 10 mL NS. 11:10 No provider procedures requiring assistance completed. Patient maintains SpO2 rs5 saturation greater than 95% on room air. 11:12 Triage completed. ll1 12:51 XRAY Chest (1 view) In Process Unspecified. EDMS 14:44 [place] Elena MD is Hospitalizing Provider. dr5 17:12 CT Chest For PE Angio In Process Unspecified. EDMS 17:12 CT Abd/Pelvis - IV Contrast Only In Process Unspecified. EDMS Administered Medications: 11:38 Drug: fentaNYL (PF) IVP 50 mcg IVP once Route: IVP; Site: right antecubital; rs5 12:01 Follow up: Response: No adverse reaction; Pain is decreased rs5 11:39 Drug: Ondansetron IVP 4 mg IVP once; over 2 minutes Route: IVP; Site: right antecubital;rs5 12:01 Follow up: Response: No adverse reaction rs5 17:10 Drug: fentaNYL (PF) IVP 50 mcg IVP once Route: IVP; Site: right antecubital; rs5 17:10 Drug: Ondansetron IVP 4 mg IVP once; over 2 minutes Route: IVP; Site: right antecubital;rs5 Medication: 15:38 VIS not applicable for this client. rs5 Outcome: 14:45 Decision to Hospitalize by Provider. dr5 21:08 Patient left the ED. jb4 Signatures: Dispatcher [employer] EDMS Jaron Wadsworth RN RN jb4 Roger Ruiz RN RN ll1 Salomon Arias RN RN rs5 Reyna Dawson Dustin, WOOD CARVING MACHINE OPERATOR-C WOOD CARVING MACHINE OPERATOR-[id number]
--- NOTE | 2024-10-03 14:45 | EDPHYS ---
Physician Documentation [facility] Name: Tamara Sotelo Age: 64 yrs Sex: Female : 1960 Arrival Date: 10/03/2024 Time: 10:57 Bed 13 Private MD: ED Physician Tyrone Manning HPI: 10/03 11:19 This 64 yrs old Female presents to ER via Wheelchair with complaints of Chest dr5 Pain. 11:22 Onset: The symptoms/episode began/occurred yesterday. Associated signs and symptoms: dr5 Pertinent negatives: congestion, shortness of breath. Patient is a 64-year-old female presenting to ER with left-sided chest pain that does not radiate. Patient reports the chest pain started yesterday and has not resolved with Tylenol. 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 Historical: - Allergies: 11:11 Demerol; ll1 11:11 Dilaudid; ll1 11:11 Morphine; ll1 11:11 Codeine; ll1 11:11 [place]; ll1 11:11 Opiods; ll1 11:11 Oxycodone; ll1 - PMHx: 11:11 FAP; Gastroparesis; Lupus erythematosus; diversion colitis (ileostomy); ll1 - PSHx: 11:11 feeding tube; feeding tube taken out; hysterectomy; ileostomy; ll1 - Immunization history:: Adult Immunizations up to date. - Social history:: Smoking status: Patient reports the use of cigarette tobacco products, smokes one pack cigarettes per day. ROS: 11:22 Constitutional: as per hpi dr5 Exam: 11:28 Constitutional: This is a well developed, well nourished patient who is awake, alert, dr5 and in no acute distress. Head/Face: Normocephalic, atraumatic. Eyes: Pupils equal round and reactive to light, extra-ocular motions intact. Lids and lashes normal. Conjunctiva and sclera are non-icteric and not injected. Cornea within normal limits. Periorbital areas with no swelling, redness, or edema. 11:28 ENT: Nares patent. No nasal discharge, no septal abnormalities noted. Tympanic membranes are normal and external auditory canals are clear. Oropharynx with no redness, swelling, or masses, exudates, or evidence of obstruction, uvula midline. Mucous membranes moist. 11:28 Chest/axilla: Inspection: normal, Palpation: is normal, Axilla: are normal, :28 Cardiovascular: Rate: normal, Rhythm: regular, Pulses: Pulses are 2+ in right radial artery and left radial artery. Heart sounds: normal, S1, normal, S2, normal, Edema: is not appreciated, JVD: is not appreciated, :28 Respiratory: mild respiratory distress is noted, Breath sounds: are clear throughout, : Abdomen/GI: Inspection: abdomen appears normal, Bowel sounds: Palpation: abdomen is soft and non-tender, Ileostomy noted, : Skin: Exam negative for :28 Neuro: Orientation: is normal, appropriate for stated age, Vital Signs: 11:11 BP 130 / 108; Pulse 72; Resp 18; Temp 98; Pulse Ox 100% on R/A; Weight 37.19 kg; Height ll1 5 ft. 4 in. ; Pain 8/10; 12:01 BP 125 / 82; Pulse 74; Resp 17; Pulse Ox 98% on R/A; rs5 13:01 BP 117 / 79; Pulse 71; Resp 17; Pulse Ox 98% on R/A; rs5 15:38 BP 121 / 83; Pulse 63; Resp 17; Pulse Ox 98% on R/A; rs5 18:37 BP 124 / 81; Pulse 74; Resp 17; Pulse Ox 99% on R/A; rs5 11:11 Body Mass Index 14.08 (37.19 kg, 162.56 cm) ll1 11:11 Pain Scale: Adult ll1 MDM: 11:00 Medical Screening Exam initiated dr5 12:57 Awaiting: X-ray results. dr5 14:42 ED course: Reexamined patient. Patient reports left-sided chest pain is unchanged after dr5 fentanyl. Patient denies radiating pain. Patient has elevated BNP. Will admit to hospital for observation. 17:49 Differential diagnosis: Unstable Angina, STEMI, NSTEMI, Pericarditis, CHF. Data dr5 reviewed: vital signs, nurses notes. Consideration of Admission/Observation Patient was admitted/placed on observation. Management of patient was discussed with the following: Hospitalist: Rayne Don. I considered the following discharge prescriptions or medication management in the emergency department Medications were administered in the Emergency Department. See MAR. Historians other than the Patient:. Care significantly affected by the following chronic conditions: FAP, gastroparesis, lupus. Care significantly affected by the following Social Determinants of Health: Poor access to healthcare and/or lack of insurance, Poor access to transportation. Counseling: I had a detailed discussion with the patient and/or guardian regarding the historical points, exam findings, and any diagnostic results supporting the discharge/admit diagnosis, the presence of at least one elevated blood pressure reading (>120/80) during this emergency department visit, lab results, radiology results, the need for further work-up and treatment in the hospital, smoking cessation. Medication response: Zofran markedly relieved the patient's nausea. Fentanyl. Response to treatment: the patient's symptoms have markedly improved after treatment. ED course: Admit for serial troponins, possible need for new onset CHF workup and possible echocardiogram. 10/03 11:01 Order name: CBC with Diff; Complete Time: 11:38 dr5 10/03 11:01 Order name: NT PRO-BNP; Complete Time: 11:59 dr5 10/03 11:01 Order name: Troponin HS; Complete Time: 11:59 dr5 10/03 11:01 Order name: CMP; Complete Time: 11:59 dr5 10/03 11:01 Order name: Magnesium; Complete Time: 11:59 dr5 10/03 18:34 Order name: Urinalysis w/ reflexes EDSC 10/03 18:34 Order name: Basic Metabolic Panel EDSC 10/03 18:34 Order name: Basic Metabolic Panel EDSC 10/03 18:34 Order name: Basic Metabolic Panel EDSC 10/03 18:34 Order name: Basic Metabolic Panel EDSC 10/03 18:34 Order name: Basic Metabolic Panel EDSC 10/03 18:34 Order name: Basic Metabolic Panel EDSC 10/03 18:34 Order name: CBC with Automated Diff EDMS 10/03 18:34 Order name: CBC with Automated Diff EDMS 10/03 18:34 Order name: CBC with Automated Diff EDMS 10/03 18:34 Order name: CBC with Automated Diff EDMS 10/03 18:34 Order name: CBC with Automated Diff EDMS 10/03 18:34 Order name: CBC with Automated Diff EDMS 10/03 18:34 Order name: Magnesium EDMS 10/03 18:34 Order name: Magnesium EDMS 10/03 18:34 Order name: Magnesium EDMS 10/03 18:34 Order name: Magnesium EDMS 10/03 18:34 Order name: Magnesium EDMS 10/03 18:34 Order name: Magnesium EDMS 10/03 18:34 Order name: Phosphorus EDMS 10/03 18:34 Order name: Phosphorus EDMS 10/03 18:34 Order name: Phosphorus EDMS 10/03 18:34 Order name: Phosphorus EDMS 10/03 18:34 Order name: Phosphorus EDMS 10/03 18:34 Order name: Phosphorus EDMS 10/03 18:34 Order name: Troponin High Sensitivity EDMS 10/03 18:34 Order name: Troponin High Sensitivity EDMS 10/03 18:34 Order name: Troponin High Sensitivity EDMS 10/03 11:01 Order name: XRAY Chest (1 view); Complete Time: 14:43 dr5 10/03 15:53 Order name: CT Chest For PE Angio; Complete Time: 18:08 dr5 10/03 16:22 Order name: CT Abd/Pelvis - IV Contrast Only; Complete Time: 18:04 dr5 10/03 11:01 Order name: Cardiac monitoring; Complete Time: 11:39 dr5 10/03 11:01 Order name: EKG - Nurse/Tech; Complete Time: 11:39 dr5 10/03 11:01 Order name: IV Saline Lock; Complete Time: 11:39 dr5 10/03 11:01 Order name: Labs collected and sent; Complete Time: 11:39 dr5 10/03 11:01 Order name: O2 Per Protocol; Complete Time: 11:39 dr5 10/03 11:01 Order name: O2 Sat Monitoring; Complete Time: 11:39 dr5 EC:08 Rate is 60 beats/min. Rhythm is regular. QRS Tangent is Normal. WA interval is normal at dr5 124 msec. QRS interval is normal at 80 msec. QT interval is normal at 416 msec. Administered Medications: 11:38 Drug: fentaNYL (PF) IVP 50 mcg IVP once Route: IVP; Site: right antecubital; rs5 12:01 Follow up: Response: No adverse reaction; Pain is decreased rs5 11:39 Drug: Ondansetron IVP 4 mg IVP once; over 2 minutes Route: IVP; Site: right antecubital;rs5 12:01 Follow up: Response: No adverse reaction rs5 17:10 Drug: fentaNYL (PF) IVP 50 mcg IVP once Route: IVP; Site: right antecubital; rs5 17:10 Drug: Ondansetron IVP 4 mg IVP once; over 2 minutes Route: IVP; Site: right antecubital;rs5 Disposition Summary: 10/03/24 14:45 Hospitalization Ordered Notes: Hospitalization Status: Observation dr5 Provider: [facility] Location: Telemetry/MedSurg (observation) dr5 Condition: Stable dr5 Problem: new dr5 Symptoms: are unchanged dr5 Bed/Room Type: Standard dr5 Room Assignment: 415(10/03/24 19:43) rv1 Diagnosis - Unstable angina dr5 Forms: - Medication Reconciliation Form dr5 - SBAR form dr5 - Leadership Thank You Letter dr5 Signatures: Dispatcher [employer] Roger Mao RN RN ll1 Ana Cramer rv1 Salomon Arias RN RN rs5 Heron Posadas, REVIVAL CLERK-C REVIVAL CLERK-Cdr5 Corrections: (The following items were deleted from the chart) 19:43 14:45 dr5 rv1
--- NOTE | 2024-10-03 15:10 | P.HP ---
Certification for Inpatient Patient admitted to: Observation With expected LOS: <2 Midnights Patient will require the following post-hospital care: None Practitioner: I am a practitioner with admitting privileges, knowledge of patient current condition, hospital course, and medical plan of care. Services: Services provided to patient in accordance with Admission requirements found in Title 42 Section 412.3 of the Code of Federal Regulations Patient History Date of Service: 10/03/24 Reason for admission: Chest pain r/o ACS, left peuritic chest pain History of Present Illness: Tamara Sotelo is a 64 year old female with Pmhx gastroparesis, FAP, lupus, ileostomy, diversion colitis, who presents to the ED with chief complaint of left-sided chest pain did not resolve with Tylenol. She reports a lower left lung space that is painful on inhalation and causing difficulty taking a deep breath. She has a complicated gastric and bowel history. An ileostomy to RLQ present, PEG tube removed from left abdomen, plan for port placement with Dr. Yusuf for TPN administration. She reports being able to tolerate some soft food by mouth but usually cannot keep anything down. 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 Laboratory evaluation significant for BNP 522, Albumin 4.0 Initial Vitals BP 130 / 108; Pulse 72; Resp 18; Temp 98; Pulse Ox 100% on R/A Chest xray reports "The lungs are diffusely emphysematous but grossly clear. No pneumothorax or sizable effusion. The heart is normal in size. Mediastinal contours are unremarkable. IMPRESSION: No acute intrathoracic abnormalities." CT PE protocol "No evidence of acute central pulmonary emboli. No suspicious intrathoracic findings, Mild to moderate centrilobular emphysematous changes." CT abd/pelvis reports "Nonspecific trace free fluid layering in the pelvis. No other acute or concerning abnormalities seen in the abdomen or pelvis." Tamara will be admitted to hospitalist service for further evaluation and treatment of Left pleuritic chest pain. Allergies codeine Allergy (Verified 04/23/23 11:36) rash, nausea, vomiting hydromorphone [From Dilaudid] Allergy (Verified 04/23/23 11:36) Rash, nausea, vomiting meperidine HCl [From Demerol] Allergy (Verified 04/23/23 11:36) Nausea/Vomiting morphine Allergy (Verified 04/23/23 11:36) quits breathing tramadol Allergy (Verified 04/23/23 11:36) hallucinations Hydrocodone-Acetaminophen Allergy (Uncoded 04/23/23 11:36) rash, nausea, vomiting Home Medications: Dicyclomine [Bentyl*] 20 mg PO QID 05/04/23 Ondansetron [Zofran (Odt)*] 4 mg PO Q12H PRN 05/04/23 Ensure Enlive 237 ml PO TID #90 can 05/11/23 Cholecalciferol (Vitamin D3) [Vitamin D3] 1.25 mg PO SEECOM 02/29/24 Pantoprazole Sodium 40 mg PO DAILY 02/29/24 Pregabalin [Lyrica] 75 mg PO BID 02/29/24 Tizanidine HCl 4 mg PO DAILY 02/29/24 - Past Medical/Surgical History Diabetic: No -: Lupus -: FAP -: Gastroparesis -: Peripheral neuropathy -: Osteopenia/osteoporosis -: Fibromyalgia -: kidney stones -: cysts on liver and kidneys -: partial complex seizure disorder -: Ovarian cysts removal -: Hysterectomy -: appendectomy -: bowel resection -: J pouch in 1999, failed in 2019 -: Ileostomy -: Feeding tube -: Metal plate in right hand and neck - Family History Father -: Heart disease Brother -: Heart disease Mother -: Cancer Notes: LUNG AND BLADDER CANCER - Social History Smoking Status: Current every day smoker Counseled patient to stop smoking for: less than 10 minutes Alcohol use: No CD- Drugs: No Caffeine use: No Review of Systems Cardiovascular: Chest Pain (Pleuritic chest pain) Physical Examination - Physical Exam General: Alert, In no apparent distress, Oriented x3, Cachectic HEENT: Atraumatic, Normocephalic, PERRLA Neck: Supple, 2+ carotid pulse no bruit Respiratory: Clear to auscultation bilaterally, Normal air movement Cardiovascular: Normal pulses, Regular rate/rhythm, Normal S1 S2 Capillary refill: <2 Seconds Gastrointestinal: No tenderness, Other (RLQ Iliostomy, Left abdominal PEG tube scar) Integumentary: No rashes Neurological: Normal speech, Normal tone - Studies Laboratory Data (last 24 hrs) 10/03/24 10/03/24 11:26 11:26 WBC 5.00 Hgb 14.2 Hct 41.9 Plt Count 188 Sodium 138 Potassium 3.8 BUN 8 Creatinine 0.82 Glucose 92 Magnesium 2.2 Total Bilirubin 0.4 AST 20 ALT 20 Alkaline Phosphatase 66 Assessment and Plan - Plan Assessment and Plan Left pleuritic chest pain 2/2 mild to moderate centrilobular emphysema Chest pain r/o TN -CXR reports "The lungs are diffusely emphysematous but grossly clear. No pneumothorax or sizable effusion. The heart is normal in size. Mediastinal contours are unremarkable. IMPRESSION: No acute intrathoracic abnormalities." -CT PE protocol "No evidence of acute central pulmonary emboli. No suspicious intrathoracic findings, Mild to moderate centrilobular emphysematous changes." -Pain control, Only pain medication she can take is fentanyl - EKG: No obvious ST segment changes - troponin 6.4 , Serial pending - Ordered transthoracic echocardiogram - Consult Cardiology - recommendations appreciated - Start daily baby aspirin and statin - Symptom control with PRN acetaminophen - continuous telemetry - TSH/FreeT4, A1C, lipid panel pending Partial complex seizure disorder -Reports no home medications at this time Peripheral neuropathy ostoepenia fibromyalgia cysts on liver and kidneys Lupus -continue home medications Gastroparesis FAP Ileostomy diversion colitis -continue home medications -supportive care -follow up outpatient -inability to tolerate PO, scheduled for port placement for TNP at home -Albumin 4.0 -CT abd/pelvis reports "Nonspecific trace free fluid layering in the pelvis. No other acute or concerning abnormalities seen in the abdomen or pelvis." DVT ppx lovenox Full code LOS 2 days Discharge Plan: Home Plan to discharge in: 24 Hours - Advance Directives Does patient have a Living Will: No Does patient have a Durable POA for Healthcare: No
--- NOTE | 2024-10-03 18:03 | RAD REPORT ---
EXAMINATION: CT Abdomen Pelvis W Contrast CLINICAL INDICATION: Female, 64 years old. EPIGASTRIC PAIN TECHNIQUE: CT abdomen and pelvis was performed, after the administration of IV contrast, as per [facility] protocol. Axial, sagittal and coronal reconstructions were obtained. One or more of the following dose reduction techniques were used: Automated exposure control, adjustment of the mA and k V according to patient size, and iterative reconstruction. Unless otherwise specified, incidental findings do not require dedicated imaging follow-up. COMPARISON: 05/15/2024 FINDINGS: LOWER CHEST: The visualized lung bases are clear. LIVER: Normal in size and contour. No focal lesion. BILIARY SYSTEM: Status post cholecystectomy. SPLEEN: Normal size. No focal lesion. PANCREAS: No mass, ductal dilation, or argelia-pancreatic fluid. ADRENALS: Normal; no mass. KIDNEYS: Normal size and contour. No hydronephrosis. URINARY BLADDER: Unremarkable. GASTROINTESTINAL TRACT: No evidence of free air, free air, bowel obstruction or abscess. Right anter ior abdominal wall ileostomy in place. Trace free fluid layering in the pelvis. APPENDIX: Normal appendix. LYMPH NODES: No lymphadenopathy. MUSCULOSKELETAL: No acute or suspicious osseous abnormality. ADDITIONAL FINDINGS: None. IMPRESSION: Nonspecific trace free fluid layering in the pelvis. No other acute or concerning abnormalities seen in the abdomen or pelvis.
--- NOTE | 2024-10-03 18:06 | RAD REPORT ---
EXAM: CT Chest For Pe Angio TECHNIQUE: CT angiogram of the chest was performed following intravenous contrast administration, inc luding sagittal and coronal as well as maximum intensity projection reformats. One or more of the following dose reduction techniques were used: Automated exposure control, adjustment of the mA and k V according to patient size, and iterative reconstruction. Unless otherwise specified, incidental findings do not require dedicated imaging follow-up. INDICATION: [facility] MAIN CHEST PAIN Bed Name: 15 Y COMPARISON: Chest radiograph of earlier the same day. FINDINGS: LINES/TUBES: None. PULMONARY ARTERIES: Main pulmonary arteries are normal in caliber. No filling defects within the pul monary arteries to suggest pulmonary embolus. LUNGS AND AIRWAYS: Minimal secretions along the lower trachea. Airways are otherwise patent. Mild to moderate centrilobular emphysematous changes throughout the lungs. No focal consolidation. PLEURA: No effusion or pneumothorax. HEART AND MEDIASTINUM: The visualized thyroid gland is normal. No mediastinal, hilar, or axillary lym phadenopathy. Heart is unremarkable. No pericardial effusion. SOFT TISSUES AND BONES: No acute osseous abnormality. No significant soft tissue finding. UPPER ABDOMEN: Unremarkable. IMPRESSION: No evidence of acute central pulmonary emboli. No suspicious intrathoracic findings. Mild to moderate centrilobular emphysematous changes..
[2024-10-03] MEDS ORDERED: ACETAMINOPHEN 325 MG TABLET PO PRN (18:28)
[2024-10-03] MEDS: LEVALBUTEROL 1.25 MG/3 ML NEB NEB SCH (19:00)
[2024-10-03] MEDS: IPRATROPIUM BROM 0.5MG/2.5ML NEB SCH (19:00)
[2024-10-03] MEDS: ENOXAPARIN 40 MG/0.4 ML SQ SCH (21:16)
[2024-10-03] MEDS: FENTANYL CITR 100 MCG/2 ML IV PRN (21:16)
[2024-10-03] MEDS: ATORVASTATIN 40 MG TAB PO SCH (21:34)
[2024-10-03] MEDS: NICOTINE 14 MG/PAT TD SCH (21:34)
[2024-10-03 22:50] VITALS: BMI 14.4
[2024-10-04 06:36] LABS: Absolute Eosinophils 0.1 K/uL (0-0.5); Absolute Lymphocytes (CBC) 2.3 K/uL (0.7-4.9); Absolute Monocytes 0.5 K/uL (0.1-1.3); Eosinophils % 1.1 % (0-4.4); Hematocrit 42.9 % (36.0-45.0); Hemoglobin 14.4 g/dL (12.0-15.0); Lymphocytes % 47.5 % (15.3-44.8); MCH 32.2 pg (27.0-35.0); MCHC 33.5 g/dL (32.0-36.0); MPV 8.7 fL (7.6-11.3); Monocytes % 9.3 % (3.3-12.3); Neutrophils % 41.1 % (41.7-73.7); Nucleated Red Blood Cells % 0.1 % (0-0); Platelets 181 thou/uL (152-406); RBC Red Blood Cell Count 4.47 M/uL (3.86-4.86); Red Cell Distribution Width 14.3 % (12.1-15.2)
[2024-10-04 06:59] LABS: Magnesium 2.3 mg/dL (1.6-2.4)
[2024-10-04 07:06] LABS: Thyroid Stimulating Hormone 4.09 uIU/mL (0.358-3.740)
[2024-10-04] MEDS: ASPIRIN EC 81 MG TAB PO SCH (08:10)
--- NOTE | 2024-10-04 08:24 | P.CNS ---
Date of Consult: 10/04/24 Chief Complaint: Chest pain r/o ACS, left peuritic chest pain History of Present Illness: Patient with complex gastric history presented with left sided rib cage pain that has been going on for few days, worse with breathing and movement, sharp in nature, reproducible on exam, get better when she is not moving or taking deep breaths, denies any other cardiac symptoms. Allergies codeine Allergy (Verified 04/23/23 11:36) rash, nausea, vomiting hydromorphone [From Dilaudid] Allergy (Verified 04/23/23 11:36) Rash, nausea, vomiting meperidine HCl [From Demerol] Allergy (Verified 04/23/23 11:36) Nausea/Vomiting morphine Allergy (Verified 04/23/23 11:36) quits breathing tramadol Allergy (Verified 04/23/23 11:36) hallucinations Hydrocodone-Acetaminophen Allergy (Uncoded 04/23/23 11:36) rash, nausea, vomiting Home medications list reviewed: Yes Home Medications: Ondansetron [Zofran (Odt)*] 4 mg PO Q8H PRN 05/04/23 Pregabalin [Lyrica] 75 mg PO BID 02/29/24 - Past Medical/Surgical History Diabetic: No -: Lupus -: FAP -: Gastroparesis -: Peripheral neuropathy -: Osteopenia/osteoporosis -: Fibromyalgia -: kidney stones -: cysts on liver and kidneys -: partial complex seizure disorder -: Ovarian cysts removal -: Hysterectomy -: appendectomy -: bowel resection -: J pouch in 1999, failed in 2019 -: Ileostomy -: Feeding tube -: Metal plate in right hand and neck - Family History Father Medical History: Heart disease Brother Medical History: Heart disease Mother Medical History: Cancer Notes: LUNG AND BLADDER CANCER - Social History Smoking Status: Current every day smoker Alcohol use: No CD- Drugs: Yes Caffeine use: Yes Place of Residence: Home Review of Systems 10-point ROS is otherwise unremarkable Physical Examination Temp Pulse Resp BP Pulse Ox 98.2 F 57 17 118/51 L 96 10/04/24 04:00 10/04/24 04:00 10/04/24 04:48 10/04/24 04:00 10/04/24 04:48 General: Alert, In no apparent distress HEENT: Atraumatic, PERRLA, Mucous membr. moist/pink, EOMI, Sclerae nonicteric Neck: Supple, 2+ carotid pulse no bruit, No LAD, Without JVD or thyroid abnormality Respiratory: Clear to auscultation bilaterally, Normal air movement Cardiovascular: Regular rate/rhythm, Normal S1 S2 Gastrointestinal: Normal bowel sounds, No tenderness Musculoskeletal: No tenderness Integumentary: No rashes Neurological: Normal gait, Normal speech, Normal tone, Normal affect Lymphatics: No axilla or inguinal lymphadenopathy Laboratory Data (last 24 hrs) 10/03/24 10/03/24 11:26 11:26 WBC 5.00 Hgb 14.2 Hct 41.9 Plt Count 188 Sodium 138 Potassium 3.8 BUN 8 Creatinine 0.82 Glucose 92 Magnesium 2.2 Total Bilirubin 0.4 AST 20 ALT 20 Alkaline Phosphatase 66 - Problems (1) Chest pain Current Visit: Yes Status: Acute Plan: NON cardiac, looks pleurtic in nature, report history of pleurisy in the past. start Colchicine 0.6 mg daily. get Echo
--- NOTE | 2024-10-04 08:54 | EKG ---
Test Date: 2024-10-03 Test Time: 11:08:14 Development Director: VERA MEASUREMENT RESULTS: Intervals: Rate: 60 GA: 124 QRSD: 80 QT: 416 QTc: 416 [place]: P: 66 GA: 124 QRS: 70 T: 72 INTERPRETIVE STATEMENTS: Normal sinus rhythm Normal ECG Compared to ECG 05/15/2024 15:37:44 Sinus tachycardia no longer present Atrial abnormality no longer present Electronically Signed On 10-04-24 08:51:41 LOOM CHECKER by Nicholas Ashley
[2024-10-04 08:55] LABS: Sqamous Epithelial <5 /HPF (None Seen); Urine Bacteria None Seen /HPF (<20); Urine Bilirubin NEGATIVE (Negative); Urine Blood Trace (Negative); Urine Clarity Clear (Clear); Urine Color Yellow (Yellow); Urine Culture Reflex Order NOT NEEDED; Urine Glucose NEGATIVE (Negative); Urine Ketones TRACE (Negative); Urine Microscopic Reflex YN ORDER UMIC; Urine Mucus 1+ /HPF (None Seen); Urine Nitrite NEGATIVE (Negative); Urine Protein TRACE (Negative); Urine RBC <5 /HPF (None Seen); Urine Urobilinogen Normal (Normal); Urine WBC <5 /HPF (<5); Urine Yeast (Budding) Trace /HPF (None Seen)
[2024-10-04 08:56] LABS: Specific Gravity > 1.030 (1.005-1.030)
[2024-10-04 09:28] LABS: Atypical Lymphocytes 2 %; Blood Morphology Comment NOT SEEN (NOT SEEN); Differential Total Cells Count 100; Lymphocytes 54 % (15-42); Monocytes 8 % (0-10); Platelet Estimate ADEQ; Segmented Neutrophils 36 % (40-80)
[2024-10-04 10:22] VITALS: O2SAT 99
--- NOTE | 2024-10-04 11:04 | P.DS ---
Admission Date: 10/03/24 Discharge Date: 10/04/24 Disposition: ROUTINE DISCHARGE Discharge Condition: GOOD Reason for Admission: Chest pain r/o ACS, left peuritic chest pain Brief History of Present Illness: Diagnosis Left pleuritic chest pain 2/2 mild to moderate centrilobular emphysema Chest pain r/o MT Partial complex seizure disorder Peripheral neuropathy ostoepenia fibromyalgia cysts on liver and kidneys Lupus Gastroparesis FAP Ileostomy diversion colitis HPI 10/03/24 Tamara Sotelo is a 64 year old female with Pmhx gastroparesis, FAP, lupus, ileostomy, diversion colitis, who presents to the ED with chief complaint of left-sided chest pain did not resolve with Tylenol. She reports a lower left lung space that is painful on inhalation and causing difficulty taking a deep breath. She has a complicated gastric and bowel history. An ileostomy to RLQ present, PEG tube removed from left abdomen, plan for port placement with Dr. Yusuf for TPN administration. She reports being able to tolerate some soft food by mouth but usually cannot keep anything down. 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 Laboratory evaluation significant for BNP 522, Albumin 4.0 Initial Vitals BP 130 / 108; Pulse 72; Resp 18; Temp 98; Pulse Ox 100% on R/A Chest xray reports "The lungs are diffusely emphysematous but grossly clear. No pneumothorax or sizable effusion. The heart is normal in size. Mediastinal contours are unremarkable. IMPRESSION: No acute intrathoracic abnormalities." CT PE protocol "No evidence of acute central pulmonary emboli. No suspicious intrathoracic findings, Mild to moderate centrilobular emphysematous changes." CT abd/pelvis reports "Nonspecific trace free fluid layering in the pelvis. No other acute or concerning abnormalities seen in the abdomen or pelvis." Tamara will be admitted to hospitalist service for further evaluation and treatment of Left pleuritic chest pain. Hospital Course: Tamara Sotelo is a pleasant 64 year old female with a past medical history significant for gastroparesis, FAP, lupus, ileostomy, diversion colitis, peripheral neuropathy, osteopenia, fibromyalgia, cyst on liver and kidneys, who was admitted to the [facility] on 10/03/24 for Left pleuritic chest pain. [text] On 10/04/24, Tamara was seen on morning rounds and deemed medically stable for discharge. Tamara was discharged with instructions to schedule follow-up appointments with PCP. Tamara was provided prescriptions for Colchicine. Physical Exam General: Alert and Oriented x3, Cachectic, NAD HEENT: Atraumatic, Normocephalic, PERRLA Neck: Supple, 2+ carotid pulse no bruit Respiratory: Clear to auscultation bilaterally, Normal air movementm on RA Cardiovascular: Normal pulses, Regular rate/rhythm, Normal S1 S2 Capillary refill: <2 Seconds Gastrointestinal: No tenderness, Other (RLQ Iliostomy, Left abdominal PEG tube scar) Integumentary: No rashes Neurological: Normal speech, Normal tone Vital Signs/Physical Exam: Temp Pulse Resp BP Pulse Ox 97.7 F 60 17 142/79 H 96 10/04/24 08:00 10/04/24 08:00 10/04/24 08:00 10/04/24 08:00 10/04/24 08:00 Laboratory Data at Discharge: WBC 4.90 thou/uL (4.3-10.9) 10/04/24 06:14 Hgb 14.4 g/dL (12.0-15.0) 10/04/24 06:14 Hct 42.9 % (36.0-45.0) 10/04/24 06:14 Plt Count 181 thou/uL (152-406) 10/04/24 06:14 Sodium 140 mEq/L (136-145) 10/04/24 06:14 Potassium 4.0 mEq/L (3.5-5.1) 10/04/24 06:14 BUN 9 mg/dL (7-18) 10/04/24 06:14 Creatinine 0.86 mg/dL (0.55-1.02) 10/04/24 06:14 Glucose 83 mg/dL (74-106) 10/04/24 06:14 Phosphorus 4.0 mg/dL (2.5-4.9) 10/04/24 06:14 Magnesium 2.3 mg/dL (1.6-2.4) 10/04/24 06:14 Total Bilirubin 0.4 mg/dL (0.2-1.0) 10/03/24 11:26 AST 20 U/L (15-37) 10/03/24 11:26 ALT 20 U/L (13-56) 10/03/24 11:26 Alkaline Phosphatase 66 U/L (45-117) 10/03/24 11:26 Triglycerides 84 mg/dL (<150) 10/04/24 06:14 Cholesterol 212 mg/dL (<200) H 10/04/24 06:14 HDL Cholesterol 77 mg/dL (40-60) H 10/04/24 06:14 Cholesterol/HDL Ratio 2.75 10/04/24 06:14 Home Medications: Ondansetron [Zofran (Odt)*] 4 mg PO Q8H PRN 05/04/23 Pregabalin [Lyrica*] 75 mg PO BID 02/29/24 Colchicine 0.6 mg PO DAILY 5 Days #5 tab 10/04/24 New Medications: Colchicine 0.6 mg PO DAILY 5 Days #5 tab Physician Discharge Instructions: 1. Please call and schedule a follow-up appointment with your PCP in 3-5 days - Please follow-up with your PCP for medication refills/adjustments -Cochicine started for five days, follow up with PCP to determine if a longer use is needed 2. Continue GI soft diet 3. activity restrictions fall precautions 4. Return to the ED if symptoms worsen New medications Colchicine 0.6 mg Daily x five day Diet: Gem Followup: Sravanthi Garcia [Primary Care Provider] -
[2024-10-04] MEDS: COLCHICINE 0.6 MG TAB PO ONE (11:37)
[2024-10-04 11:55] VITALS: BP 127/88; TEMP 98.6
--- NOTE | 2024-10-04 13:09 | ECHO ---
HEIGHT: 5 ft 4 in WEIGHT: 84 lb 0 oz DATE OF STUDY: 10/04/[address]: Rayne Don NP 2-DIMENSIONAL: YES M.MODE: YES DOPPLER: YES COLOR FLOW: YES TDS: PORTABLE: YES DEFINITY: BUBBLE STUDY: DIAGNOSIS: CHEST PAIN CARDIAC HISTORY: CATHERIZATION: YES SURGERY: NO PROSTHETIC VALVE: NO PACEMAKER: NO MEASUREMENTS (cm) DIASTOLIC (NORMALS) SYSTOLIC (NORMALS) IVSd 0.9 (0.6-1.2) LA Diam 2.2 (1.9-4.0) LVEF 55-60% LVIDd 3.2 (3.5-5.7) LVIDs 2.2 (2.0-3.5) %FS 29% LVPWd 1.1 (0.6-1.2) Ao Diam 2.6 (2.0-3.7) 2 DIMENSIONAL ASSESSMENT: RIGHT ATRIUM: NORMAL LEFT ATRIUM: NORMAL RIGHT VENTRICLE: NORMAL LEFT VENTRICLE: NORMAL TRICUSPID VALVE: TRACE TRICUSPID REGURGITATION MITRAL VALVE: NORMAL PULMONIC VALVE: NORMAL AORTIC VALVE: NORMAL PERICARDIAL EFFUSION: NONE AORTIC ROOT: NORMAL LEFT VENTRICULAR WALL MOTION: NORMAL DOPPLER/COLOR FLOW: NORMAL COMMENTS: 1. NORMAL LEFT VENTRICULAR SYSTOLIC FUNCTION, EJECTION FRACTION 55-60%, NORMAL WALL MOTION 2. NORMAL DIASTOLIC FUNCTION TECHNOLOGIST: CHELSEA BEJARANO
[2024-10-04] MEDS ORDERED: ENSURE ENLIVE 237 ML CAN PO SCH (21:00)
== END 2024-10-04 14:10 | disposition home or self-care (01) | DRG 191 ==
LOC: ER 10:57 → ERHOLD 18:28 → 4TH 20:35
PROVIDERS: ADMIT Hospitalist; ATTEND Internal Medicine
DX: J43.2 Centrilobular emphysema (principal); G40.209 Localization-related (focal) (partial) symptomatic epilepsy and epileptic syndromes with complex partial seizures, not intractable, without status epilepticus; I20.0 Unstable angina; R64 Cachexia; Z68.1 Body mass index [BMI] 19.9 or less, adult; Z93.2 Ileostomy status; Z88.5 Allergy status to narcotic agent; Z90.710 Acquired absence of both cervix and uterus; F17.210 Nicotine dependence, cigarettes, uncomplicated; Z79.899 Other long term (current) drug therapy; G62.9 Polyneuropathy, unspecified; M85.80 Other specified disorders of bone density and structure, unspecified site; M79.7 Fibromyalgia; K76.89 Other specified diseases of liver; N28.1 Cyst of kidney, acquired; M32.9 Systemic lupus erythematosus, unspecified; K31.84 Gastroparesis; K52.89 Other specified noninfective gastroenteritis and colitis; D13.91 Familial adenomatous polyposis
CPT/HCPCS: 36415; 71045; 71275; 74177; 80048; 80053; 80061; 81001; 83036; 83735; 83880; 84100; 84439; 84443; 84484; 85025; 93005; 93306; 94640; 96374; 96375; 99285; J1650; J2405; J3010; J7614; J7644; Q9967